=== PATIENT | female | born 1945 | race Two or more races ===

== ENCOUNTER 2019-08-20 18:51 | Inpatient (IN) | payer MEDICARE, MEDICAID ==
[~2019-08-20] VITALS: Ht 154.9 cm; Wt 76.7 kg
[2019-08-20 19:05] VITALS: BP 149/83
--- NOTE | 2019-08-20 19:05 | NUR ---
ED Nurse Note: Patient walked in to ED from home c/o flu like symptoms and SOB x3 weeks. Temp at ED is 99.4F, orally. No recent travel. Alert adn orientedx4, verbally responisve. Not in any distress. Addendum: 08/20/19 at 2018 by YANIRA ED Nurse Note: Droplet precaution observe.
--- NOTE | 2019-08-20 19:10 | NUR ---
ED Nurse Note: IV line established. Blood and urine specimen collected and sent to lab.
--- NOTE | 2019-08-20 19:15 | NUR ---
ED Nurse Note: Xray at bedside.
--- NOTE | 2019-08-20 19:23 | Emergency Room Report ---
History of Present Illness General Chief Complaint: Upper Respiratory Illness Source: Patient (Madie Guerra) Present Illness HPI 74-year-old Panamanian-speaking female brought in by paramedics due to 3 weeks of cough and shortness of breath. Patient has history of type 2 diabetes, insulin- dependent, hypertension, and asthma. Reports that inhaler has not been helping her. Patient was seen by primary doctor 3 weeks ago, chest x-ray was within normal limit, and patient was tested negative for coronavirus. Patient reports that she continues to cough and short of breath. Also started developing diarrhea and abdominal pain and nausea vomiting. Patient reports that she is extremely fatigued. Cannot even stand up and sit on the wheelchair. Oxygenation is 92%. Afebrile, vital signs otherwise within normal limits. Reports that other than albuterol inhaler has not taken medication for symptom relief. Has been staying home during this time. Denies any recent travel. Complains of chest pain. Denies any chest pain radiation. Also complains of palpitation. Denies history of tobacco smoke, alcohol intake, drug use (Madie Guerra) Allergies: Coded Allergies: No Known Allergies (Unverified , 08/20/19) COVID-19 Screening Contact w/high risk pt: No Recent Travel to affected area: No Experienced COVID-19 symptoms?: Yes COVID-19 symptoms experienced: Shortness of Breath, Flu-Like Symptoms (Madie Guerra) Patient History Past Medical History: see triage record Pertinent Family History: none Immunizations: UTD Reviewed Nursing Documentation: PMH: Agreed; PSxH: Agreed (Madie Guerra) Nursing Documentation-PMH Hx Hypertension: Yes Hx Asthma: Yes Hx Diabetes: Yes (Madie Guerra) Review of Systems All Other Systems: negative except mentioned in HPI (Madie Guerra) Physical Exam Vital Signs Date Time Temp Pulse Resp B/P (MAP) Pulse Ox O2 Delivery O2 Flow Rate FiO2 08/20/19 18:59 98.8 92 20 149/83 (105) 90 Room Air Sp02 EP Interpretation: abnormal - 92% O2 sat General Appearance: alert, mild distress Head: normocephalic, atraumatic Eyes: bilateral eye normal inspection, bilateral eye PERRL ENT: normal ENT inspection Neck: full range of motion, supple Respiratory: chest non-tender, no rhonchi, no respiratory distress, no retraction, no accessory muscle use, no wheezing, crackles Cardiovascular #1: regular rate, rhythm, no edema, no murmur Gastrointestinal: non tender, soft Rectal: deferred Genitourinary: no CVA tenderness Musculoskeletal: back normal Neurologic: alert, oriented Psychiatric: normal inspection Skin: no rash Lymphatic: no adenopathy (Madie Guerra) Procedures Critical Care Time Critical Care Time 40 minutes for multiple re-evaluations presentation concerning for covid-19, with increased concern for rapid respiratory failure requiring multiple re- evaluations not including any procedural time (Carol Pyle DO) Medical Decision Making PA Attestation All my diagnosis and treatment plans were reviewed ad discussed with my supervising physician Dr. Pyle (Madie Guerra) Diagnostic Impression: Primary Impression: URI (upper respiratory infection) Additional Impression: Pneumonia ER Course 74-year-old Panamanian-speaking female brought in by paramedics due to 3 weeks of cough and shortness of breath. Patient has history of type 2 diabetes, insulin- dependent, hypertension, and asthma. Reports that inhaler has not been helping her. Patient was seen by primary doctor 3 weeks ago, chest x-ray was within normal limit, and patient was tested negative for coronavirus. Patient reports that she continues to cough and short of breath. Also started developing diarrhea and abdominal pain and nausea vomiting. Patient reports that she is extremely fatigued. Cannot even stand up and sit on the wheelchair. Oxygenation is 92%. Afebrile, vital signs otherwise within normal limits. Reports that other than albuterol inhaler has not taken medication for symptom relief. Has been staying home during this time. Denies any recent travel. Complains of chest pain. Denies any chest pain radiation. Also complains of palpitation. Denies history of tobacco smoke, alcohol intake, drug use Ddx considered but are not limited to: Coronavirus, pneumonia, bronchitis, ARDS , [place], Angina, COPD, GERD, Vital signs: are WNL, pt. is afebrile H&PE are most consistent with URI suspicious for coronavirus ORDERS: EKG, Chest XR, cardiac labs(troponin, CBC, CMP, BNP), lactic acid, blood culture, influenza swab ED INTERVENTIONS: NS bolus, as patient reports she is dehydrated I signed out the patient to Dr. Pyle at 8pm Patient was admitted with diagnosis of URI suspicious for coronavirus to under supervision of : Edenilson pt stable at time of admission (Madie Guerra) ER Course Please refer to the initial note for the history exam and presentation I do agree with the initial note Patient was initially also found to be hypoxic has had Reported outpatient attempt however presents back with continued shortness of breath and complaints of cough Blood work is initiated Patient does meet risk factors with concerning clinical findings for covid-19 Patient is hospitalized with oxygenation requiring further testing Labs Test 08/20/19 19:33 08/20/19 20:00 White Blood Count 9.1 K/UL (4.8-10.8) Red Blood Count 4.27 M/UL (4.20-5.40) Hemoglobin 11.8 G/DL (12.0-16.0) Hematocrit 36.9 % (37.0-47.0) Mean Corpuscular Volume 86 FL (80-99) Mean Corpuscular Hemoglobin 27.6 PG (27.0-31.0) Mean Corpuscular Hemoglobin Concent 31.9 G/DL (32.0-36.0) Red Cell Distribution Width 13.3 % (11.6-14.8) Platelet Count 384 K/UL (150-450) Mean Platelet Volume 7.9 FL (6.5-10.1) Neutrophils (%) (Auto) 75.6 % (45.0-75.0) Lymphocytes (%) (Auto) 15.1 % (20.0-45.0) Monocytes (%) (Auto) 8.0 % (1.0-10.0) Eosinophils (%) (Auto) 0.6 % (0.0-3.0) Basophils (%) (Auto) 0.7 % (0.0-2.0) Sodium Level 135 MMOL/L (136-145) Potassium Level 4.9 MMOL/L (3.5-5.1) Chloride Level 94 MMOL/L (98-107) Carbon Dioxide Level 31 MMOL/L (21-32) Anion Gap 10 mmol/L (5-15) Blood Urea Nitrogen 19 mg/dL (7-18) Creatinine 1.2 MG/DL (0.55-1.30) Estimat Glomerular Filtration Rate 44.0 mL/min (>60) Glucose Level 377 MG/DL (74-106) Calcium Level 9.7 MG/DL (8.5-10.1) Total Bilirubin 0.2 MG/DL (0.2-1.0) Aspartate Amino Transf (AST/SGOT) 36 U/L (15-37) Alanine Aminotransferase (ALT/SGPT) 57 U/L (12-78) Alkaline Phosphatase 69 U/L (46-116) Total Protein 8.2 G/DL (6.4-8.2) Albumin 3.1 G/DL (3.4-5.0) Globulin 5.1 g/dL Albumin/Globulin Ratio 0.6 (1.0-2.7) (Carol Pyle DO) EKG Diagnostic Results Rate: normal Rhythm: NSR ST Segments: no acute changes Other Impression No acute ST changes (Madie Guerra) Rhythm Strip Diag. Results EP Interpretation: yes Rate: 88 Rhythm: NSR, no PVC's, no ectopy (Carol Pyle DO) Chest X-Ray Diagnostic Results Chest X-Ray Diagnostic Results : Chest X-Ray Ordered: Yes # of Views/Limited/Complete: 1 View Indication: Shortness of Breath EP Interpretation: Yes PA Xray: Interpretation reviewed, by supervising MD, and agrees with findings. Interpretation: no effusion, no pneumothorax, other - Consolidation noted perihilar Impression: Other - Consolidation noted perihilar Electronically Signed by: Madie Olson PA-C (Madie Guerra) Chest X-Ray Diagnostic Results : Chest X-Ray Ordered: Yes # of Views/Limited/Complete: 1 View Indication: Shortness of Breath EP Interpretation: Yes Interpretation: no consolidation, no effusion, no pneumothorax, other - Question some increased markings left lower lobe Impression: Other - Question haziness left lower lobe possible infiltrate versus other Electronically Signed by: Carol Pyle DO (Carol Pyle DO) Last Vital Signs Date Time Temp Pulse Resp B/P (MAP) Pulse Ox O2 Delivery O2 Flow Rate FiO2 08/20/19 18:59 98.8 92 20 149/83 (105) 90 Room Air (Madie Guerra) Status: improved (Carol Pyle DO) Disposition: ADMITTED INPATIENT Condition: Serious Madie Guerra Aug 20, 2019 19:23 Carol Pyle DO Aug 20, 2019 20:28
[2019-08-20 19:56] LABS: BASOPHILS % (AUTO) 0.7 % (0.0-2.0); EOSINOPHILS % (AUTO) 0.6 % (0.0-3.0); HEMATOCRIT 36.9 % (37.0-47.0); HEMOGLOBIN 11.8 G/DL (12.0-16.0); LYMPHOCYTES % (AUTO) 15.1 % (20.0-45.0); MEAN CORPUSCULAR VOLUME 86 FL (80-99); NEUTROPHILS % (AUTO) 75.6 % (45.0-75.0); PLATELET COUNT 384 K/UL (150-450); RED BLOOD COUNT 4.27 M/UL (4.20-5.40); RED CELL DISTRIBUTION WIDTH 13.3 % (11.6-14.8); WHITE BLOOD COUNT 9.1 K/UL (4.8-10.8)
[2019-08-20 20:20] LABS: INR 0.9 (0.9-1.1)
[2019-08-20 20:21] LABS: ANION GAP 10 mmol/L (5-15); BLOOD UREA NITROGEN 19 mg/dL (7-18); CALCIUM 9.7 MG/DL (8.5-10.1); CARBON DIOXIDE 31 MMOL/L (21-32); CHLORIDE 94 MMOL/L (98-107); CREATININE 1.2 MG/DL (0.55-1.30); POTASSIUM 4.9 MMOL/L (3.5-5.1); SODIUM 135 MMOL/L (136-145)
[2019-08-20 20:26] LABS: ALANINE AMINOTRANSFERASE 57 U/L (12-78); ALBUMIN 3.1 G/DL (3.4-5.0); ALBUMIN/GLOBULIN RATIO 0.6 (1.0-2.7); ALKALINE PHOSPHATASE 69 U/L (46-116); ASPARTATE AMINO TRANSFERASE 36 U/L (15-37); BILIRUBIN,TOTAL 0.2 MG/DL (0.2-1.0)
[2019-08-20 20:35] LABS: CKMB 1.5 NG/ML (0.0-3.6)
[2019-08-20 20:43] LABS: APPEARANCE,URINE CLEAR; BILIRUBIN, URINE NEGATIVE (NEGATIVE); GLUCOSE, URINE (UA) 3+ (NEGATIVE); KETONES,URINE 1+ (NEGATIVE); LEUKOCYTE ESTERASE ,URINE 1+ (NEGATIVE); NITRITE,URINE NEGATIVE (NEGATIVE); PH,URINE 6 (4.5-8.0); PROTEIN,URINE 2+ (NEGATIVE); UROBILINOGEN,URINE 1 MG/DL (0.0-1.0)
[2019-08-20 20:44] LABS: COLOR,URINE YELLOW
[2019-08-20 21:32] VITALS: BP 156/82
[2019-08-20] MEDS ORDERED: MECLIZINE HCL25 MG ORAL (21:48)
[2019-08-20 23:00] VITALS: BP 145/79
--- NOTE | 2019-08-20 23:00 | NUR ---
ED Nurse Note: Pt seen sleeping in bed. Not in any distress. Safety and comfort provided. Will cont to monitor.
[2019-08-21] VITALS (7 sets, daily range): BP systolic 129–144; BP diastolic 62–81
--- NOTE | 2019-08-21 01:15 | NUR ---
ED Nurse Note: Pt moved to a [place] [facility] bed.
--- NOTE | 2019-08-21 07:02 | NUR ---
HAND-OFF: Report given to Dion LIRA. Endorsed plan of care.
--- NOTE | 2019-08-21 07:15 | NUR ---
ED Nurse Note: Patient resting in bed comfortably. Patient on the ekg monitor. No s/s of acute distress.
--- NOTE | 2019-08-21 09:50 | Diagnostic Imaging Report ---
Indication: Cough Technique: One view of the chest Comparison: none Findings: The heart is borderline enlarged. The aorta is tortuous and calcified. There is some right suprahilar scarring and bronchial wall thickening. No definite acute infiltrates or effusions. There are degenerative changes of both acromioclavicular joints. Impression: No definite acute process. Findings as noted
--- NOTE | 2019-08-21 10:23 | NUR ---
ED Nurse Note: Called and left voicemail for Dr. Arriaga asking to call back for admission orders for patient.
--- NOTE | 2019-08-21 11:15 | NUR ---
ED Nurse Note: Received pt, Admission orders given by Dr Arriaga and received by Dion LIRA.
--- NOTE | 2019-08-21 11:30 | NUR ---
ED Nurse Note: Dr Arriaga at the bed side.
--- NOTE | 2019-08-21 12:10 | NUR ---
ED Nurse Note: Lunch provided to pt. 30 % consumed.
--- NOTE | 2019-08-21 14:39 | NUR ---
ED Nurse Note: Report given to Cailtyn LIRA of SDU.
--- NOTE | 2019-08-21 16:00 | History and Physical Report ---
DATE OF ADMISSION: 08/20/2019 HISTORY OF PRESENT ILLNESS: This is a 74-year-old female with a history of cough and shortness of breath. She came to the hospital with increasing shortness of breath. The patient is a known diabetic and has asthma and hypertension. Apparently, the patient has been tested in the past for COVID-19 and has been negative. She also had diarrhea, abdominal pain and vomiting, and she also reports fatigue. She was found to be normoxemic, but low saturation of 92% on room air. The patient has been taking albuterol at home. She is admitted to the hospital for subsequent management and care and repeat COVID-19 test. PAST MEDICAL HISTORY: Hypertension, diabetes mellitus, asthma. ALLERGIES: None reported. HOME MEDICATIONS: None reported except inhalers, although I note she is a known diabetic and hypertensive. REVIEW OF SYSTEMS: Denies any headaches, hematemesis, melena, or hematochezia. PHYSICAL EXAMINATION: GENERAL: Reveals a 74-year-old female. HEENT: Unremarkable. LUNGS: Clear breath sounds bilaterally. HEART: Normal heart sounds. ABDOMEN: Soft. EXTREMITIES: There is no edema. IMAGING: X-ray chest with some right perihilar scarring, but no definite pathology noted. LABORATORY DATA: Lab testing showed otherwise negative urinalysis, normal chemistries with lactic acid 2.4, now down to 1.5, glucose 377. White count is normal, hemoglobin 11. IMPRESSION: 1. Diabetes mellitus with hyperglycemia. 2. Suspect exacerbation of asthma. 3. Rule out COVID-19. 4. Hypertension. DISCUSSION: Admit to the hospital. We will start insulin sliding scale, steroids, empiric antibiotics, and IV fluids. We will follow carefully. Jacoby Arriaga M.D. DR: ARNULFO JOB#: [id number] CC:
--- NOTE | 2019-08-21 16:00 | NUR ---
NURSE NOTES: Received telephone report at 1443 from Martine LIRA. Pt. at floor now. Pt. awake, a/o x 4. On O2 at 2LPM via NC. O2 sat at 97%. Noted pt. dry, non-productive cough. Denies pain at present. Discomfort when coughing per pt. IV at left FA #22g. in placed patent/intact running NS at 75cc/hr. Purewick in placed. Bed in low position. Call light within reach. Will cont. to monitor.
--- NOTE | 2019-08-21 16:30 | NUR ---
NURSE NOTES: Called Dr. Arriaga regarding admission orders. Awaiting for response.
--- NOTE | 2019-08-21 18:27 | NUR ---
NURSE NOTES: Called back Dr. Arriaga regarding medications order. Noted and carried out.
--- NOTE | 2019-08-21 19:42 | NUR ---
HAND-OFF: Report given to Nasim Her RN. Pt. remain stable.
[2019-08-21] MEDS: Levemir Flexpen SUBQ SCH (21:00)
[2019-08-21] MEDS: NovoLOG Insulin Flexpen SUBQ SCH (21:00)
[2019-08-22] VITALS: BP 138/75
[2019-08-22 04:00] VITALS: BP 145/73
[2019-08-22] MEDS: NovoLOG Insulin Flexpen SUBQ SCH ×4 (06:30→20:57)
--- NOTE | 2019-08-22 07:10 | NUR ---
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 RECEIVED PT ON ISOLATION ROOM R/O COVID-19. PT AWAKE AND ALERT MALTESE SPEAKING ONLY DENIES CP OR SOB AT THIS TIME,DRY COUGH NOTED. FULL BODY ASSESSMENT DONE. NO ACUTE DISTRESS NOTED AT THIS TIME. WILL CONT TO MONITOR.
--- NOTE | 2019-08-22 07:20 | NUR ---
HAND-OFF: Report given to Amadeo LIRA.
[2019-08-22 08:00] VITALS: BP 136/75
--- NOTE | 2019-08-22 08:42 | Pulmonology Progress Note ---
Assessment/Plan Assessment/Plan IMPRESSION: 1. Diabetes mellitus with hyperglycemia. 2. Exacerbation of asthma. 3. Rule out COVID-19. 4. Hypertension. DISCUSSION: Continue insulin sliding scale, added steroids, empiric antibiotics, and IV fluids. I will follow carefully. Resume home medications and Lantus Jacoby Arriaga M.D. Subjective Interval Events: None new Constitutional: Reports: no symptoms HEENT: Repors: no symptoms Respiratory: Reports: no symptoms Cardiovascular: Reports: no symptoms Gastrointestinal/Abdominal: Reports: no symptoms Allergies: Coded Allergies: No Known Allergies (Unverified , 08/20/19) Objective Last 24 Hour Vital Signs Date Time Temp Pulse Resp B/P (MAP) Pulse Ox O2 Delivery O2 Flow Rate FiO2 08/22/19 04:14 2.0 08/22/19 04:14 Nasal Cannula 2.0 08/22/19 04:00 92 08/22/19 04:00 98.0 90 18 145/73 (97) 95 08/22/19 00:03 2.0 08/22/19 00:00 88 08/22/19 00:00 97.9 88 18 138/75 (96) 96 08/21/19 23:27 Nasal Cannula 2.0 08/21/19 21:00 2.0 08/21/19 20:00 97.0 84 18 144/76 (98) 95 08/21/19 20:00 86 08/21/19 17:57 90 08/21/19 16:33 Nasal Cannula 2.0 08/21/19 15:32 99.0 80 18 144/85 95 Nasal Cannula 2.0 08/21/19 13:44 99.0 76 16 141/80 99 Nasal Cannula 2.0 08/21/19 10:51 99.3 93 17 134/79 93 Room Air 08/21/19 08:50 99.2 96 18 137/81 97 Room Air Intake and Output 08/21/19 08/22/19 19:00 07:00 Intake Total 315 ml Output Total 1500 ml Balance 315 ml -1500 ml Intake Oral 240 ml IV Total 75 ml Output Urine Total 1500 ml General Appearance: no acute distress HEENT: normocephalic Respiratory/Chest: chest wall non-tender Cardiovascular: normal peripheral pulses Abdomen: normal bowel sounds Microbiology Date/Time Source Procedure Growth Status 08/20/19 19:33 Blood Blood Culture - Preliminary NO GROWTH AFTER 24 HOURS Resulted 08/20/19 19:15 Blood Blood Culture - Preliminary NO GROWTH AFTER 24 HOURS Resulted 08/20/19 20:29 Nasal Nares - Final Complete 08/20/19 20:29 Nasal Nares - Final Complete Current Medications Medications (Trade) Dose Ordered Sig/Estelle Route PRN Reason Start Time Stop Time Status Last Admin Dose Admin Dextrose (Dextrose 50%) 25 ml Q30M PRN IV Hypoglycemia 08/21/19 16:45 11/19/19 16:44 Dextrose (Dextrose 50%) 50 ml Q30M PRN IV Hypoglycemia 08/21/19 16:45 11/19/19 16:44 Hydroxychloroquine Sulfate (Plaquenil) 200 mg BID ORAL 08/22/19 18:00 08/26/19 09:01 Hydroxychloroquine Sulfate (Plaquenil) 400 mg BID ORAL 08/21/19 20:00 08/22/19 09:01 08/21/19 21:45 Insulin Aspart (NovoLOG) BEFORE MEALS AND HS SUBQ 08/21/19 21:00 11/19/19 20:59 Insulin Detemir (Levemir) 20 units BEDTIME SUBQ 08/21/19 21:00 11/19/19 20:59 Levofloxacin 150 ml @ 100 mls/hr DAILY IVPB 08/22/19 09:00 08/29/19 08:59 Metformin HCl (Glucophage) 1,000 mg BID ORAL 08/22/19 09:00 09/21/19 08:59 Pantoprazole (Protonix) 40 mg DAILY ORAL 08/22/19 09:00 09/21/19 08:59 Sodium Chloride 1,000 ml @ 75 mls/hr [id number] IV 08/21/19 12:45 09/20/19 12:44 08/22/19 01:53 Jacoby Arriaga MD Aug 22, 2019 08:42
--- NOTE | 2019-08-22 09:17 | NUR ---
*-* INSURANCE *-* ALL AVAILABLE CLINICALS HAVE BEEN FAXED TO: [facility] OPAL: ADRIAN REF# [id number] P [phone] OPT. 01 F: [phone]
--- NOTE | 2019-08-22 09:36 | NUR ---
CASE MANAGEMENT:REVIEW 08/20/19 @ 1851 74 YR OLD MALE BIBA FROM HOME TO ER CC: SOB. FLU LIKE SYMPTOMS SI: URI. PNEUMONIA 99.4 92 20 149/83 90% ON RA BUN+19 GLUCOSE+377 IS: PLACED ON 2L/NC 1L NS BOLUS X1 IV LEVAQUIN X1 COVID-19 UPPER SOURCE : ADMITTED TO STEP DOWN UNIT ON 08/21/19 @ 1530 08/22/19 SI: DM W/HYPERGLYCEMIA ASTHMA EXACERBATION. R/O COVID-19 98.0 90 18 145/73 95% ON 2L/NC IS: IV LEVAQUIN Q24 IVF@75/HR PLAQUENIL PO BID METFORMIN PO BID PROTONIX PO QD SS INSULIN AC+HS LEVEMIR SQ QHS : STEP DOWN UNIT DCP: PATIENT IS FROM HOME
[2019-08-22] MEDS: metFORMIN 500mg tab ORAL SCH ×2 (10:03→17:34)
[2019-08-22 12:00] VITALS: BP 136/76
--- NOTE | 2019-08-22 14:06 | Infectious Diseases Prog Note ---
Assessment/Plan Assessment/Plan Full consult dictation to follow: cough, sob, no fevers rule out covid-19 virus infection chest x-ray - negative hydroxychloroquine plus azithromycin await covid-19 pcr testing thank you Subjective Allergies: Coded Allergies: No Known Allergies (Unverified , 08/20/19) Objective Vital Signs Last 24 Hour Vital Signs Date Time Temp Pulse Resp B/P (MAP) Pulse Ox O2 Delivery O2 Flow Rate FiO2 08/22/19 12:00 97.4 95 20 136/76 (96) 93 08/22/19 12:00 2.0 08/22/19 12:00 Nasal Cannula 2.0 08/22/19 12:00 91 08/22/19 08:00 97.8 92 20 136/75 (95) 94 08/22/19 08:00 Nasal Cannula 2.0 08/22/19 08:00 2.0 08/22/19 08:00 96 08/22/19 04:14 2.0 08/22/19 04:14 Nasal Cannula 2.0 08/22/19 04:00 92 08/22/19 04:00 98.0 90 18 145/73 (97) 95 08/22/19 00:03 2.0 08/22/19 00:00 88 08/22/19 00:00 97.9 88 18 138/75 (96) 96 08/21/19 23:27 Nasal Cannula 2.0 08/21/19 21:00 2.0 08/21/19 20:00 97.0 84 18 144/76 (98) 95 08/21/19 20:00 86 08/21/19 17:57 90 08/21/19 16:33 Nasal Cannula 2.0 08/21/19 15:32 99.0 80 18 144/85 95 Nasal Cannula 2.0 Height (Feet): 5 Height (Inches): 1.00 Weight (Pounds): 170 Microbiology Date/Time Source Procedure Growth Status 08/20/19 19:33 Blood Blood Culture - Preliminary NO GROWTH AFTER 24 HOURS Resulted 08/20/19 19:15 Blood Blood Culture - Preliminary NO GROWTH AFTER 24 HOURS Resulted 08/20/19 20:29 Nasal Nares - Final Complete 08/20/19 20:29 Nasal Nares - Final Complete Current Medications Medications (Trade) Dose Ordered Sig/Estelle Route PRN Reason Start Time Stop Time Status Last Admin Dose Admin Dextrose (Dextrose 50%) 25 ml Q30M PRN IV Hypoglycemia 08/21/19 16:45 11/19/19 16:44 Dextrose (Dextrose 50%) 50 ml Q30M PRN IV Hypoglycemia 08/21/19 16:45 11/19/19 16:44 Hydroxychloroquine Sulfate (Plaquenil) 200 mg BID ORAL 08/22/19 18:00 08/26/19 09:01 Insulin Aspart (NovoLOG) BEFORE MEALS AND HS SUBQ 08/21/19 21:00 11/19/19 20:59 08/22/19 12:48 Insulin Detemir (Levemir) 20 units BEDTIME SUBQ 08/21/19 21:00 11/19/19 20:59 Metformin HCl (Glucophage) 1,000 mg BID ORAL 08/22/19 09:00 09/21/19 08:59 08/22/19 10:03 Pantoprazole (Protonix) 40 mg DAILY ORAL 08/22/19 09:00 09/21/19 08:59 08/22/19 10:03 Sodium Chloride 1,000 ml @ 75 mls/hr [id number] IV 08/21/19 12:45 09/20/19 12:44 08/22/19 12:58 Trevor Rogers MD Aug 22, 2019 14:06
[2019-08-22] MEDS ORDERED: Azithromycin 250mg tab ORAL SCH (14:10)
[2019-08-22 16:00] VITALS: BP 137/78
--- NOTE | 2019-08-22 19:10 | NUR ---
HAND-OFF: Report given to .SUSY LIRA
--- NOTE | 2019-08-22 19:20 | NUR ---
NURSE NOTES: Report received from PANKAJ Childs. Observed pt lying in the bed. Noted pt c/o pain at iv site, infiltrates noted and taken out, will put new one. A/O x4. Denies any other pain. SR on security monitor. On room air with no sob. Abd soft and non-tender. 1 BM noted Bed bath given. Purewick in placed. Bed in the lowest position. Side rails up x3. Will continue to monitor.
[2019-08-22 20:00] VITALS: BP 140/82
[2019-08-22] MEDS: Levemir Flexpen SUBQ SCH (20:56)
[2019-08-23] VITALS: BP 144/70
--- NOTE | 2019-08-23 | NUR ---
NURSE NOTES: pt sleeping in the bed, calm. No acute distress noted at this time. Will continue to monitor.
[2019-08-23 04:00] VITALS: BP 133/64
[2019-08-23 05:47] LABS: BASOPHILS % (AUTO) 0.4 % (0.0-2.0); EOSINOPHILS % (AUTO) 1.2 % (0.0-3.0); HEMATOCRIT 32.3 % (37.0-47.0); HEMOGLOBIN 10.7 G/DL (12.0-16.0); MEAN CORPUSCULAR VOLUME 84 FL (80-99); MONOCYTES % (AUTO) 8.5 % (1.0-10.0); PLATELET COUNT 464 K/UL (150-450); RED BLOOD COUNT 3.85 M/UL (4.20-5.40); RED CELL DISTRIBUTION WIDTH 12.2 % (11.6-14.8); WHITE BLOOD COUNT 8.6 K/UL (4.8-10.8)
[2019-08-23 06:02] LABS: ANION GAP 11 mmol/L (5-15); BLOOD UREA NITROGEN 7 mg/dL (7-18); CALCIUM 9.1 MG/DL (8.5-10.1); CARBON DIOXIDE 27 MMOL/L (21-32); CHLORIDE 104 MMOL/L (98-107); CREATININE 0.8 MG/DL (0.55-1.30); POTASSIUM 3.9 MMOL/L (3.5-5.1); SODIUM 142 MMOL/L (136-145)
[2019-08-23] MEDS: NovoLOG Insulin Flexpen SUBQ SCH ×4 (06:27→20:37)
--- NOTE | 2019-08-23 06:30 | NUR ---
NURSE NOTES: Left message regarding COVID 19 to . Pt stable. On 2L, sat at 98%. No other distress noted at this time.
--- NOTE | 2019-08-23 07:10 | NUR ---
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 RECEIVED PT ON DROPLET ISOLATION COVID-19 CONFIRMED LAST NIGHT AT 2100 PM. PT AWAKE AND ALERT ORIENTED X4 DANISH SPEAKING ,ABLE TO FALLOWS SIMPLE COMMANDS IN [place] .PT WITH H.L G# 22 ON RT HAND CONNECTED TO IVF,S NS @75CC/HRS INFUSING WELL AT THIS TIME.PT USING O2 @ 2L/MINTS VIA N/C ,O2 SAT 95%.PT C/O,S OF DRY COUGH. PLACED A TELEPHONE CALL TO DR DOSS AND LEFT A MESSAGE ON EMERGENCY VOICE MAIL REGARDING PT IS POSITIVE COVID-19 AND PT C/O,S OF DRY COUGH. A WAITING FOR M.D TO CALL ME BACK.WILL CONT TO MONITOR.
--- NOTE | 2019-08-23 07:14 | NUR ---
HAND-OFF: Report given to PANKAJ Childs.
[2019-08-23 08:00] VITALS: BP 149/83
[2019-08-23] MEDS ORDERED: Azithromycin 250mg tab ORAL SCH (09:00)
[2019-08-23] MEDS: metFORMIN 500mg tab ORAL SCH ×2 (09:18→17:47)
--- NOTE | 2019-08-23 10:30 | NUR ---
NURSE NOTES: DR DOSS CAME TO SEE THE PT AND MADE HIM AWARE AND NOTIFIED REGARDING PT IS REQUESTING FOR COUGH MEDICATION, MRia STATED " I WILL ORDER MEDICATION FOR COUGH". WILL CONT TO MONITOR.
--- NOTE | 2019-08-23 11:50 | Pulmonology Progress Note ---
Assessment/Plan Assessment/Plan IMPRESSION: 1. Diabetes mellitus with hyperglycemia. 2. Exacerbation of asthma. 3. Positive COVID-19 pneumonia 4. Hypertension. DISCUSSION: Continue insulin sliding scale, steroids, empiric antibiotics, and IV fluids. I will follow carefully. Resume home medications and Lantus Seen by ID re + COVID 19 Jacoby Arriaga M.D. Subjective Interval Events: Has moist cough; saturating well on nasal O2 Constitutional: Reports: no symptoms HEENT: Repors: no symptoms Respiratory: Reports: no symptoms Cardiovascular: Reports: no symptoms Allergies: Coded Allergies: No Known Allergies (Unverified , 08/20/19) Objective Last 24 Hour Vital Signs Date Time Temp Pulse Resp B/P (MAP) Pulse Ox O2 Delivery O2 Flow Rate FiO2 08/23/19 08:00 97.9 92 20 149/83 (105) 95 08/23/19 08:00 Nasal Cannula 2.0 08/23/19 08:00 2.0 08/23/19 08:00 85 08/23/19 04:00 Nasal Cannula 2.0 08/23/19 04:00 98.8 100 20 133/64 (87) 95 08/23/19 04:00 2.0 08/23/19 03:34 100 08/23/19 00:00 Nasal Cannula 2.0 08/23/19 00:00 98.8 86 20 144/70 (94) 95 08/23/19 00:00 86 08/23/19 00:00 2.0 08/22/19 20:00 Nasal Cannula 2.0 08/22/19 20:00 2.0 08/22/19 20:00 97.8 83 20 140/82 (101) 95 08/22/19 20:00 95 08/22/19 16:00 97.7 92 19 137/78 (97) 94 08/22/19 16:00 2.0 08/22/19 16:00 Nasal Cannula 2.0 08/22/19 16:00 96 08/22/19 12:00 97.4 95 20 136/76 (96) 93 08/22/19 12:00 2.0 08/22/19 12:00 Nasal Cannula 2.0 08/22/19 12:00 91 Intake and Output 08/22/19 08/23/19 19:00 07:00 Intake Total 1570 ml 795 ml Output Total 550 ml 400 ml Balance 1020 ml 395 ml Intake Oral 820 ml 120 ml IV Total 750 ml 675 ml Output Urine Total 550 ml 400 ml # Bowel Movements 1 1 General Appearance: no acute distress HEENT: normocephalic Respiratory/Chest: chest wall non-tender Cardiovascular: normal peripheral pulses Abdomen: normal bowel sounds Microbiology Date/Time Source Procedure Growth Status 08/20/19 19:33 Blood Blood Culture - Preliminary NO GROWTH AFTER 48 HOURS Resulted 08/20/19 19:15 Blood Blood Culture - Preliminary NO GROWTH AFTER 48 HOURS Resulted 08/20/19 20:29 Nasopharynx Coronavirus COVID-19 PCR ([facility]) - Final Complete 08/20/19 20:29 Nasal Nares - Final Complete 08/20/19 20:29 Nasal Nares - Final Complete Laboratory Tests 08/23/19 05:00: White Blood Count 8.6, Red Blood Count 3.85L, Hemoglobin 10.7L, Hematocrit 32.3L , Mean Corpuscular Volume 84, Mean Corpuscular Hemoglobin 27.8, Mean Corpuscular Hemoglobin Concent 33.2, Red Cell Distribution Width 12.2, Platelet Count 464H, Mean Platelet Volume 6.3L, Neutrophils (%) (Auto) 72.0, Lymphocytes (%) (Auto) 18.0L, Monocytes (%) (Auto) 8.5, Eosinophils (%) (Auto) 1.2, Basophils (%) (Auto) 0.4, Sodium Level 142, Potassium Level 3.9, Chloride Level 104, Carbon Dioxide Level 27, Anion Gap 11, Blood Urea Nitrogen 7, Creatinine 0.8, Estimat Glomerular Filtration Rate > 60, Glucose Level 104, Calcium Level 9.1 Current Medications Medications (Trade) Dose Ordered Sig/Estelle Route PRN Reason Start Time Stop Time Status Last Admin Dose Admin Azithromycin (Zithromax) 250 mg DAILY ORAL 08/23/19 09:00 08/30/19 08:59 08/23/19 09:19 Dextrose (Dextrose 50%) 25 ml Q30M PRN IV Hypoglycemia 08/21/19 16:45 11/19/19 16:44 Dextrose (Dextrose 50%) 50 ml Q30M PRN IV Hypoglycemia 08/21/19 16:45 11/19/19 16:44 Hydroxychloroquine Sulfate (Plaquenil) 200 mg BID ORAL 08/22/19 18:00 08/26/19 09:01 08/23/19 09:18 Insulin Aspart (NovoLOG) BEFORE MEALS AND HS SUBQ 08/21/19 21:00 11/19/19 20:59 08/22/19 20:57 Insulin Detemir (Levemir) 20 units BEDTIME SUBQ 08/21/19 21:00 11/19/19 20:59 08/22/19 20:56 Metformin HCl (Glucophage) 1,000 mg BID ORAL 08/22/19 09:00 09/21/19 08:59 08/23/19 09:18 Pantoprazole (Protonix) 40 mg DAILY ORAL 08/22/19 09:00 09/21/19 08:59 08/23/19 09:18 Sodium Chloride 1,000 ml @ 75 mls/hr [id number] IV 08/21/19 12:45 09/20/19 12:44 08/23/19 05:14 Jacoby Arriaga MD Aug 23, 2019 11:50
[2019-08-23 12:00] VITALS: BP 142/76
[2019-08-23] MEDS: guaiFENesin w/Codeine 5ml Liq ud ORAL PRN ×2 (13:12→20:37)
--- NOTE | 2019-08-23 13:29 | NUR ---
*-* INSURANCE *-* ALL AVAILABLE CLINICALS HAVE BEEN FAXED TO: [facility] OPAL: ADRIAN REF# [id number] P [phone] OPT. 01 F: [phone]
--- NOTE | 2019-08-23 13:30 | NUR ---
CASE MANAGEMENT: REVIEW 08/23/2019 SI:ASTHMA EXACERBATION. Positive COVID-19 pneumonia. T 98.4 HR 79 RR 20 B/P 142/76 SATS 96% ON 2L/NC LABS: WNL IS:NS @ 75 ML/HR LEVEMIR SUBQ QHS METFORMIN PO BID PLAQUENIL PO BID PROTONIX PO QD INSULIN ASPART SUB AC/HS SDU
[2019-08-23 16:30] VITALS: BP 146/81
--- NOTE | 2019-08-23 19:00 | NUR ---
HAND-OFF: Report given to .CHAPIN LIRA.
--- NOTE | 2019-08-23 19:01 | NUR ---
NURSE NOTES: received pt from Amadeo LIRA., pt is awake and AOx4 at this moment Greek speaker. pt is on 2L of NC O2sat is at 96%. no SOB noted at this moment. pt states no pain right now. Right Hand 24G intact, clean and patent. purewick is on. pt is on lowest position, alarmed, and locked. will continue to monitor pt with plan of care. call light within reach.
[2019-08-23 20:00] VITALS: BP 145/77
[2019-08-23] MEDS: Levemir Flexpen SUBQ SCH (20:38)
--- NOTE | 2019-08-23 20:58 | Infectious Diseases Prog Note ---
Assessment/Plan Assessment/Plan Full consult dictated: A) 1) covid-19 infection 2) cough 3) pmh noted 4) allergies - nkda P) 1) hydroxychloroquine - day # 07/25 2) azithromycin - day # 06/27 3) telemetry 4) thank you Subjective Constitutional: Denies: fever HEENT: Denies: congestion Respiratory: Denies: shortness of breath Cardiovascular: Denies: chest pain Allergies: Coded Allergies: No Known Allergies (Unverified , 08/20/19) Objective Vital Signs Last 24 Hour Vital Signs Date Time Temp Pulse Resp B/P (MAP) Pulse Ox O2 Delivery O2 Flow Rate FiO2 08/23/19 16:30 98.1 19 146/81 (102) 95 08/23/19 16:00 2.0 08/23/19 16:00 85 08/23/19 16:00 Nasal Cannula 2.0 08/23/19 12:00 86 08/23/19 12:00 2.0 08/23/19 12:00 Nasal Cannula 2.0 08/23/19 12:00 98.4 79 20 142/76 (98) 96 08/23/19 08:00 Nasal Cannula 2.0 08/23/19 08:00 2.0 08/23/19 08:00 85 08/23/19 04:00 Nasal Cannula 2.0 08/23/19 04:00 98.8 100 20 133/64 (87) 95 08/23/19 04:00 2.0 08/23/19 03:34 100 08/23/19 00:00 Nasal Cannula 2.0 08/23/19 00:00 98.8 86 20 144/70 (94) 95 08/23/19 00:00 86 08/23/19 00:00 2.0 Height (Feet): 5 Height (Inches): 1.00 Weight (Pounds): 170 General Appearance: WD/WN HEENT: normocephalic, atraumatic, anicteric Respiratory/Chest: lungs clear, normal breath sounds, no accessory muscle use Cardiovascular: normal rate, regular rhythm, no gallop/murmur Abdomen: normal bowel sounds, soft, non tender, no organomegaly Laboratory Tests Test 08/23/19 05:00 White Blood Count 8.6 K/UL (4.8-10.8) Red Blood Count 3.85 M/UL (4.20-5.40) L Hemoglobin 10.7 G/DL (12.0-16.0) L Hematocrit 32.3 % (37.0-47.0) L Mean Corpuscular Volume 84 FL (80-99) Mean Corpuscular Hemoglobin 27.8 PG (27.0-31.0) Mean Corpuscular Hemoglobin Concent 33.2 G/DL (32.0-36.0) Red Cell Distribution Width 12.2 % (11.6-14.8) Platelet Count 464 K/UL (150-450) H Mean Platelet Volume 6.3 FL (6.5-10.1) L Neutrophils (%) (Auto) 72.0 % (45.0-75.0) Lymphocytes (%) (Auto) 18.0 % (20.0-45.0) L Monocytes (%) (Auto) 8.5 % (1.0-10.0) Eosinophils (%) (Auto) 1.2 % (0.0-3.0) Basophils (%) (Auto) 0.4 % (0.0-2.0) Sodium Level 142 MMOL/L (136-145) Potassium Level 3.9 MMOL/L (3.5-5.1) Chloride Level 104 MMOL/L (98-107) Carbon Dioxide Level 27 MMOL/L (21-32) Anion Gap 11 mmol/L (5-15) Blood Urea Nitrogen 7 mg/dL (7-18) Creatinine 0.8 MG/DL (0.55-1.30) Estimat Glomerular Filtration Rate > 60 mL/min (>60) Glucose Level 104 MG/DL (74-106) Calcium Level 9.1 MG/DL (8.5-10.1) Current Medications Medications (Trade) Dose Ordered Sig/Estelle Route PRN Reason Start Time Stop Time Status Last Admin Dose Admin Azithromycin (Zithromax) 250 mg DAILY ORAL 08/23/19 09:00 08/30/19 08:59 08/23/19 09:19 Dextrose (Dextrose 50%) 25 ml Q30M PRN IV Hypoglycemia 08/21/19 16:45 11/19/19 16:44 Dextrose (Dextrose 50%) 50 ml Q30M PRN IV Hypoglycemia 08/21/19 16:45 11/19/19 16:44 Guaifenesin/ Codeine Phosphate (Robitussin with codeine) 5 ml Q6H PRN ORAL For Cough 08/23/19 12:00 09/22/19 11:59 08/23/19 20:37 Hydroxychloroquine Sulfate (Plaquenil) 200 mg BID ORAL 08/22/19 18:00 08/26/19 09:01 08/23/19 17:47 Insulin Aspart (NovoLOG) BEFORE MEALS AND HS SUBQ 08/21/19 21:00 11/19/19 20:59 08/22/19 20:57 Insulin Detemir (Levemir) 20 units BEDTIME SUBQ 08/21/19 21:00 11/19/19 20:59 08/23/19 20:38 Metformin HCl (Glucophage) 1,000 mg BID ORAL 08/22/19 09:00 09/21/19 08:59 08/23/19 17:47 Pantoprazole (Protonix) 40 mg DAILY ORAL 08/22/19 09:00 09/21/19 08:59 08/23/19 09:18 Sodium Chloride 1,000 ml @ 75 mls/hr [id number] IV 08/21/19 12:45 09/20/19 12:44 08/23/19 15:00 Trevor Rogers MD Aug 23, 2019 20:58
--- NOTE | 2019-08-23 22:14 | Consultation ---
DATE OF CONSULTATION: 08/23/2019 INFECTIOUS DISEASES CONSULTATION CONSULTING PHYSICIAN: Trevor Rogers M.D. ATTENDING PHYSICIAN: Jacoby Arriaga M.D. REFERRING PHYSICIAN: Jacoby Arriaga M.D. REASON FOR CONSULTATION: COVID-19 infection. REASON FOR ADMISSION: Respiratory infection, rule out COVD-19 infection. HISTORY OF PRESENT ILLNESS: This is a 74-year-old female who comes to the [facility] with Chief complaint of congestion, cough. The patient was admitted for possible COVID-19 virus infection. COVID-19 virus testing came back positive. She has no significant fevers. She was given some Levaquin initially, but now she is currently on hydroxychloroquine on day #3 and azithromycin day #2. The patient is in [facility] and is on telemetry. The patient will be continued on these medications for COVID-19 virus infection which again is positive by PCR. REVIEW OF SYSTEMS: Main issue is cough. No fever. No chills. CARDIAC: No chest pain. GASTROINTESTINAL: No nausea or diarrhea. GENITOURINARY: No Muñoz. PULMONARY: With cough SKIN: No rash. NEUROLOGIC: No evidence of seizures. PAST MEDICAL HISTORY: The patient's past medical history includes the following. The patient has a past medical history of hypertension, diabetes, asthma. ALLERGIES: No known drug allergies. SOCIAL HISTORY: Negative for smoking, alcohol, or drug abuse. FAMILY HISTORY: Noncontributory. MEDICATIONS: Upon reviewing the MAR, she is on following medications. She is on azithromycin and hydroxychloroquine. She was on Levaquin which was discontinued, metformin, pantoprazole, insulin, IV fluids. Outside medications noted and reconciliated. PHYSICAL EXAMINATION: VITAL SIGNS: Temperature 98.1, pulse 85, respiratory rate 19, blood pressure 146/81, saturation 95%. GENERAL: Alert, responsive, oriented. She is coughing. The patient is in isolation for COVID-19. HEAD AND NECK: Normocephalic. No icterus or thrush. HEART: No gallop or murmur. ABDOMEN: Soft. Positive bowel sounds. Nontender LUNGS: Few bilateral rhonchi. SKIN: No rash. NEUROLOGIC: Intact. GENITOURINARY: No Muñoz. LINE SITES: Without phlebitis. EXTREMITIES: No cellulitis. PERIPHERAL VASCULAR: No gangrene noted. LABORATORY DATA: White count 8.6, hemoglobin 10.7. Creatinine 0.8. UA had 0 to 2 white cells. COVID-19 virus infection testing by PCR was positive. Chest x-ray showed no acute process. ASSESSMENT AND PLAN: 1. The patient has COVID-19 virus infection with cough, possible upper respiratory infection and bronchitis. Continue hydroxychloroquine #3 treatment out of 5 and also azithromycin day #2/5. Continue treatment. Monitor the patient clinically. The patient will need repeat testing to see if the patient has cleared. Monitor cough at this time. COVID-19 testing was positive by PCR for COVID-19 virus infection. 2. Diabetes. 3. Hypertension. 4. Asthma. 5. Blood sugar and blood pressure treatment per primary care team. 6. No known drug allergies. 7. Social history is negative. 8. Family history is noncontributory. 9. MAR was noted. 10. Case was discussed with RN. 11. Continue COVID isolation for now. Trevor Rogers M.D. DR: Thair JOB#: [id number] CC:
[2019-08-24] VITALS: BP 138/75
[2019-08-24 04:00] VITALS: BP 138/65
[2019-08-24] MEDS: NovoLOG Insulin Flexpen SUBQ SCH ×4 (06:07→20:10)
--- NOTE | 2019-08-24 07:25 | NUR ---
HAND-OFF: Report given to Halley LIRA. pt remains stable condition. endorsed plan of care.
--- NOTE | 2019-08-24 07:26 | NUR ---
NURSE NOTES: Received patient in bed from Ana Hackett, patient is alert awake x4, able to follow commands, able to speak in full sentences. patient is on 2L of NC. patient is in no acute distress, no SOB noted at this time. patient has purewick on, tolerating with out complication. emptied 900ml of yellow/light ruth urine. patient is on lowest position, bed alarm on, and locked. will continue to monitor pt with plan of care. call light within reach.
--- NOTE | 2019-08-24 07:27 | NUR ---
NURSE NOTES: patient is on a contact and droplet isolation room.
[2019-08-24 08:00] VITALS: BP 139/45
[2019-08-24] MEDS: metFORMIN 500mg tab ORAL SCH ×2 (08:15→17:24)
--- NOTE | 2019-08-24 08:20 | NUR ---
NURSE NOTES: patient provided with breakfast tray. patient tolerated without complications.
--- NOTE | 2019-08-24 10:19 | Pulmonology Progress Note ---
Assessment/Plan Assessment/Plan IMPRESSION: 1. Diabetes mellitus with hyperglycemia. 2. Exacerbation of asthma. 3. Positive COVID-19 pneumonia 4. Hypertension. DISCUSSION: Continue insulin sliding scale, steroids, empiric antibiotics, and IV fluids. I will follow carefully. Resume home medications and Lantus Seen by ID re + COVID 19 Jacoby Arriaga M.D. Subjective Interval Events: None new Constitutional: Reports: no symptoms HEENT: Repors: no symptoms Respiratory: Reports: no symptoms Cardiovascular: Reports: no symptoms Gastrointestinal/Abdominal: Reports: no symptoms Genitourinary: Reports: no symptoms Allergies: Coded Allergies: No Known Allergies (Unverified , 08/20/19) Objective Last 24 Hour Vital Signs Date Time Temp Pulse Resp B/P (MAP) Pulse Ox O2 Delivery O2 Flow Rate FiO2 08/24/19 08:00 Nasal Cannula 2.0 08/24/19 08:00 2.0 08/24/19 08:00 97.3 20 139/45 (76) 94 08/24/19 08:00 94 08/24/19 04:00 Nasal Cannula 2.0 08/24/19 04:00 97.6 18 138/65 (89) 98 08/24/19 04:00 2.0 08/24/19 03:39 80 08/24/19 00:00 97.5 18 138/75 (96) 97 08/24/19 00:00 Nasal Cannula 2.0 08/24/19 00:00 81 08/23/19 20:00 Nasal Cannula 2.0 08/23/19 20:00 97.8 19 145/77 (99) 96 08/23/19 20:00 2.0 08/23/19 19:44 83 08/23/19 16:30 98.1 19 146/81 (102) 95 08/23/19 16:00 2.0 08/23/19 16:00 85 08/23/19 16:00 Nasal Cannula 2.0 08/23/19 12:00 86 08/23/19 12:00 2.0 08/23/19 12:00 Nasal Cannula 2.0 08/23/19 12:00 98.4 79 20 142/76 (98) 96 Intake and Output 08/23/19 08/24/19 19:00 07:00 Intake Total 1625 ml 1000 ml Output Total 600 ml 1400 ml Balance 1025 ml -400 ml Intake Oral 800 ml 400 ml IV Total 825 ml 600 ml Output Urine Total 600 ml 1400 ml # Bowel Movements 4 2 General Appearance: no acute distress HEENT: normocephalic Respiratory/Chest: chest wall non-tender Cardiovascular: normal peripheral pulses Abdomen: normal bowel sounds Current Medications Medications (Trade) Dose Ordered Sig/Estelle Route PRN Reason Start Time Stop Time Status Last Admin Dose Admin Dextrose (Dextrose 50%) 25 ml Q30M PRN IV Hypoglycemia 08/21/19 16:45 11/19/19 16:44 Dextrose (Dextrose 50%) 50 ml Q30M PRN IV Hypoglycemia 08/21/19 16:45 11/19/19 16:44 Guaifenesin/ Codeine Phosphate (Robitussin with codeine) 5 ml Q6H PRN ORAL For Cough 08/23/19 12:00 09/22/19 11:59 08/23/19 20:37 Hydroxychloroquine Sulfate (Plaquenil) 200 mg BID ORAL 08/22/19 18:00 08/26/19 09:01 08/24/19 08:15 Insulin Aspart (NovoLOG) BEFORE MEALS AND HS SUBQ 08/21/19 21:00 11/19/19 20:59 08/22/19 20:57 Insulin Detemir (Levemir) 20 units BEDTIME SUBQ 08/21/19 21:00 11/19/19 20:59 08/23/19 20:38 Metformin HCl (Glucophage) 1,000 mg BID ORAL 08/22/19 09:00 09/21/19 08:59 08/24/19 08:15 Pantoprazole (Protonix) 40 mg DAILY ORAL 08/22/19 09:00 09/21/19 08:59 08/24/19 08:15 Sodium Chloride 1,000 ml @ 75 mls/hr [id number] IV 08/21/19 12:45 09/20/19 12:44 08/24/19 08:16 Jacoby Arriaga MD Aug 24, 2019 10:19
--- NOTE | 2019-08-24 10:54 | NUR ---
*-* INSURANCE *-* ALL AVAILABLE CLINICALS HAVE BEEN FAXED TO: [facility] OPAL: ADRIAN REF# [id number] P [phone] OPT. 01 F: [phone]
[2019-08-24 12:00] VITALS: BP 140/55
--- NOTE | 2019-08-24 12:19 | NUR ---
[employer] SI: UPPER RESP INFECTION,COVID 19 T. 97.3 HR 81 RR 20 B/P 138/75 2L NC IS: IVF NS @ 75ML/HR PLAQUENIL PROTONIX DROPLET ISOLATION STEP DOWN STATUS
--- NOTE | 2019-08-24 12:30 | NUR ---
NURSE NOTES: patient's bs is 94, novolog held.
[2019-08-24 16:00] VITALS: BP 119/58
--- NOTE | 2019-08-24 17:33 | NUR ---
NURSE NOTES: patient's bs is 92, novolog held.
--- NOTE | 2019-08-24 17:33 | NUR ---
NURSE NOTES: patient provided with dinner tray.
--- NOTE | 2019-08-24 19:17 | NUR ---
HAND-OFF: Report given to Ana Hackett. endorsed all plan of care to Ana LIRA
--- NOTE | 2019-08-24 19:18 | NUR ---
NURSE NOTES: received pt from Halley LIRA., pt is awake and AOx4 at this moment Croatian speaker. pt is on 2L of NC O2sat is at 96%. no SOB noted at this moment. pt states no pain right now.Left AC IV 24G intact, clean and patent. purewick is on. pt is on lowest position, alarmed, and locked. will continue to monitor pt with plan of care. call light within reach.
[2019-08-24 20:00] VITALS: BP 135/60
[2019-08-24] MEDS: Levemir Flexpen SUBQ SCH (20:09)
[2019-08-25] VITALS: BP 130/58
[2019-08-25 04:00] VITALS: BP 134/63
[2019-08-25] MEDS: NovoLOG Insulin Flexpen SUBQ SCH ×4 (06:06→20:57)
--- NOTE | 2019-08-25 07:26 | NUR ---
HAND-OFF: Report given to Elsie Caraballo RN., pt is stable condition. endorsed plan of care.
--- NOTE | 2019-08-25 07:30 | NUR ---
NURSE NOTES: Report received from Bobbi Hackett RN.Pt asleep in bed easily awakens with verbal command,denies any c/o pain or discomfort,SR on the monitor, encouraged to eat breakfast,pure wick in placed draining yellow urine,skin warm and dry IV site to LAC intact SR up x2 call ray within reach at bedside,HOB elevated,bed lock in lowest position,will continue with plans of care.
[2019-08-25 07:35] LABS: ALANINE AMINOTRANSFERASE 28 U/L (12-78); ALBUMIN 2.6 G/DL (3.4-5.0); ALBUMIN/GLOBULIN RATIO 0.6 (1.0-2.7); ALKALINE PHOSPHATASE 64 U/L (46-116); ANION GAP 9 mmol/L (5-15); ASPARTATE AMINO TRANSFERASE 20 U/L (15-37); BILIRUBIN,TOTAL 0.3 MG/DL (0.2-1.0); BLOOD UREA NITROGEN 13 mg/dL (7-18); CALCIUM 9.4 MG/DL (8.5-10.1); CARBON DIOXIDE 30 MMOL/L (21-32); CHLORIDE 103 MMOL/L (98-107); CREATININE 0.9 MG/DL (0.55-1.30); POTASSIUM 3.7 MMOL/L (3.5-5.1); SODIUM 141 MMOL/L (136-145)
[2019-08-25 07:36] LABS: BASOPHILS % (AUTO) 0.7 % (0.0-2.0); EOSINOPHILS % (AUTO) 1.5 % (0.0-3.0); HEMOGLOBIN 11.4 G/DL (12.0-16.0); LYMPHOCYTES % (AUTO) 23.3 % (20.0-45.0); MEAN CORPUSCULAR VOLUME 84 FL (80-99); MONOCYTES % (AUTO) 9.4 % (1.0-10.0); NEUTROPHILS % (AUTO) 65.2 % (45.0-75.0); PLATELET COUNT 519 K/UL (150-450); RED BLOOD COUNT 4.04 M/UL (4.20-5.40); RED CELL DISTRIBUTION WIDTH 11.9 % (11.6-14.8); WHITE BLOOD COUNT 8.3 K/UL (4.8-10.8)
[2019-08-25] MEDS: metFORMIN 500mg tab ORAL SCH ×2 (08:04→18:10)
[2019-08-25 08:05] VITALS: BP 150/58
--- NOTE | 2019-08-25 11:00 | NUR ---
NURSE NOTES: Pt incontinent of liquid yellow stools in Large amount,kept dry and clean.
[2019-08-25 11:25] VITALS: BP 150/74
--- NOTE | 2019-08-25 11:57 | Pulmonology Progress Note ---
Assessment/Plan Assessment/Plan IMPRESSION: 1. Diabetes mellitus with hyperglycemia. 2. Exacerbation of asthma. 3. Positive COVID-19 pneumonia 4. Hypertension. DISCUSSION: Continue insulin sliding scale, steroids, empiric antibiotics, and IV fluids. I will follow carefully. Resume home medications and Lantus Seen by ID re + COVID 19 Jacoby Arriaga M.D. Subjective Interval Events: None new Constitutional: Reports: no symptoms HEENT: Repors: no symptoms Respiratory: Reports: no symptoms Cardiovascular: Reports: no symptoms Gastrointestinal/Abdominal: Reports: no symptoms Allergies: Coded Allergies: No Known Allergies (Unverified , 08/20/19) Objective Last 24 Hour Vital Signs Date Time Temp Pulse Resp B/P (MAP) Pulse Ox O2 Delivery O2 Flow Rate FiO2 08/25/19 11:25 97.0 72 18 150/74 (99) 99 08/25/19 08:05 97.0 74 18 150/58 (88) 99 08/25/19 08:00 Nasal Cannula 2.0 08/25/19 08:00 91 08/25/19 04:00 2.0 08/25/19 04:00 Nasal Cannula 2.0 08/25/19 04:00 97.5 18 134/63 (86) 97 08/25/19 03:59 73 08/25/19 00:00 Nasal Cannula 2.0 08/25/19 00:00 97.8 19 130/58 (82) 97 08/24/19 23:56 72 08/24/19 21:08 84 08/24/19 20:00 2.0 08/24/19 20:00 97.3 19 135/60 (85) 95 08/24/19 20:00 Nasal Cannula 2.0 08/24/19 16:00 Nasal Cannula 2.0 08/24/19 16:00 87 08/24/19 16:00 97.1 20 119/58 (78) 94 08/24/19 16:00 2.0 08/24/19 12:00 97.1 20 140/55 (83) 94 08/24/19 12:00 Nasal Cannula 2.0 08/24/19 12:00 87 08/24/19 12:00 2.0 Intake and Output 08/24/19 08/25/19 19:00 07:00 Intake Total 875 ml 1125 ml Output Total 1400 ml 1000 ml Balance -525 ml 125 ml Intake Oral 800 ml 450 ml IV Total 75 ml 675 ml Output Urine Total 1400 ml 1000 ml # Bowel Movements 3 General Appearance: no acute distress HEENT: normocephalic Respiratory/Chest: chest wall non-tender Cardiovascular: normal peripheral pulses Abdomen: normal bowel sounds Laboratory Tests 08/25/19 05:40: White Blood Count 8.3, Red Blood Count 4.04L, Hemoglobin 11.4L, Hematocrit 34.0L , Mean Corpuscular Volume 84, Mean Corpuscular Hemoglobin 28.3, Mean Corpuscular Hemoglobin Concent 33.6, Red Cell Distribution Width 11.9, Platelet Count 519H, Mean Platelet Volume 5.9L, Neutrophils (%) (Auto) 65.2, Lymphocytes (%) (Auto) 23.3, Monocytes (%) (Auto) 9.4, Eosinophils (%) (Auto) 1.5, Basophils (%) (Auto) 0.7, Sodium Level 141, Potassium Level 3.7, Chloride Level 103, Carbon Dioxide Level 30, Anion Gap 9, Blood Urea Nitrogen 13, Creatinine 0.9, Estimat Glomerular Filtration Rate > 60, Glucose Level 74, Calcium Level 9.4, Total Bilirubin 0.3, Aspartate Amino Transf (AST/SGOT) 20, Alanine Aminotransferase (ALT/SGPT) 28, Alkaline Phosphatase 64, Total Protein 7.3, Albumin 2.6L, Globulin 4.7, Albumin/Globulin Ratio 0.6L Current Medications Medications (Trade) Dose Ordered Sig/Estelle Route PRN Reason Start Time Stop Time Status Last Admin Dose Admin Dextrose (Dextrose 50%) 25 ml Q30M PRN IV Hypoglycemia 08/21/19 16:45 11/19/19 16:44 Dextrose (Dextrose 50%) 50 ml Q30M PRN IV Hypoglycemia 08/21/19 16:45 11/19/19 16:44 Guaifenesin/ Codeine Phosphate (Robitussin with codeine) 5 ml Q6H PRN ORAL For Cough 08/23/19 12:00 09/22/19 11:59 08/23/19 20:37 Hydroxychloroquine Sulfate (Plaquenil) 200 mg BID ORAL 08/22/19 18:00 08/26/19 09:01 08/25/19 08:04 Insulin Aspart (NovoLOG) BEFORE MEALS AND HS SUBQ 08/21/19 21:00 11/19/19 20:59 08/24/19 20:10 Insulin Detemir (Levemir) 20 units BEDTIME SUBQ 08/21/19 21:00 11/19/19 20:59 08/24/19 20:09 Metformin HCl (Glucophage) 1,000 mg BID ORAL 08/22/19 09:00 09/21/19 08:59 08/25/19 08:04 Pantoprazole (Protonix) 40 mg DAILY ORAL 08/22/19 09:00 09/21/19 08:59 08/25/19 08:04 Sodium Chloride 1,000 ml @ 75 mls/hr [id number] IV 08/21/19 12:45 09/20/19 12:44 08/25/19 08:05 Jacoby Arriaga MD Aug 25, 2019 11:57
--- NOTE | 2019-08-25 15:30 | Infectious Diseases Prog Note ---
Assessment/Plan Assessment/Plan ASSESSMENT AND PLAN: 1. covid-19 virus infection, uri/bronchitis, cough, chest x-ray - negative - continue hydroxychloroquine x 24 hrs - otherwise stable clinically 2. Diabetes. 3. Hypertension. 4. Asthma. 5. Blood sugar and blood pressure treatment per primary care team. 6. No known drug allergies. 7. Social history is negative. 8. Family history is noncontributory. 9. MAR was noted. 10. Case was discussed with RN. 11. Continue COVID isolation for now. Subjective Constitutional: Denies: fever HEENT: Denies: congestion Respiratory: Denies: shortness of breath Cardiovascular: Denies: chest pain Gastrointestinal/Abdominal: Denies: nausea, vomiting, diarrhea Genitourinary: Denies: dysuria Neurologic: Denies: headache Psychiatric: Denies: depression Skin: Denies: rash Hematologic: Denies: bleeding Musculoskeletal: Denies: pain Allergies: Coded Allergies: No Known Allergies (Unverified , 08/20/19) Objective Vital Signs Last 24 Hour Vital Signs Date Time Temp Pulse Resp B/P (MAP) Pulse Ox O2 Delivery O2 Flow Rate FiO2 08/25/19 12:00 81 08/25/19 12:00 Nasal Cannula 2.0 08/25/19 11:25 97.0 72 18 150/74 (99) 99 08/25/19 08:05 97.0 74 18 150/58 (88) 99 08/25/19 08:00 Nasal Cannula 2.0 08/25/19 08:00 91 08/25/19 04:00 2.0 08/25/19 04:00 Nasal Cannula 2.0 08/25/19 04:00 97.5 18 134/63 (86) 97 08/25/19 03:59 73 08/25/19 00:00 Nasal Cannula 2.0 08/25/19 00:00 97.8 19 130/58 (82) 97 08/24/19 23:56 72 08/24/19 21:08 84 08/24/19 20:00 2.0 08/24/19 20:00 97.3 19 135/60 (85) 95 08/24/19 20:00 Nasal Cannula 2.0 08/24/19 16:00 Nasal Cannula 2.0 08/24/19 16:00 87 08/24/19 16:00 97.1 20 119/58 (78) 94 08/24/19 16:00 2.0 Height (Feet): 5 Height (Inches): 1.00 Weight (Pounds): 170 General Appearance: no acute distress HEENT: normocephalic, atraumatic, anicteric, mucous membranes moist Respiratory/Chest: lungs clear, normal breath sounds, no respiratory distress, no accessory muscle use Cardiovascular: normal rate, regular rhythm, no gallop/murmur, no JVD Abdomen: normal bowel sounds, soft, non tender, no organomegaly, non distended Genitourinary: other - no robertson Extremities: no cyanosis Skin: no rash Neurologic/Psychiatric: marketing clerk II-XII grossly normal, alert, oriented x 3, responsive Lymphatic: no neck adenopathy Musculoskeletal: no effusion Objective Chest x-ray - Procedure: XRAY Chest 1v Indication: Cough Technique: One view of the chest Comparison: none Findings: The heart is borderline enlarged. The aorta is tortuous and calcified. There is some right suprahilar scarring and bronchial wall thickening. No definite acute infiltrates or effusions. There are degenerative changes of both acromioclavicular joints. Impression: No definite acute process. Findings as noted Microbiology Date/Time Source Procedure Growth Status 08/20/19 19:33 Blood Blood Culture - Preliminary NO GROWTH AFTER 4 DAYS Resulted 08/20/19 20:29 Nasopharynx Coronavirus COVID-19 PCR ([facility]) - Final Complete Laboratory Tests Test 08/25/19 05:40 White Blood Count 8.3 K/UL (4.8-10.8) Red Blood Count 4.04 M/UL (4.20-5.40) L Hemoglobin 11.4 G/DL (12.0-16.0) L Hematocrit 34.0 % (37.0-47.0) L Mean Corpuscular Volume 84 FL (80-99) Mean Corpuscular Hemoglobin 28.3 PG (27.0-31.0) Mean Corpuscular Hemoglobin Concent 33.6 G/DL (32.0-36.0) Red Cell Distribution Width 11.9 % (11.6-14.8) Platelet Count 519 K/UL (150-450) H Mean Platelet Volume 5.9 FL (6.5-10.1) L Neutrophils (%) (Auto) 65.2 % (45.0-75.0) Lymphocytes (%) (Auto) 23.3 % (20.0-45.0) Monocytes (%) (Auto) 9.4 % (1.0-10.0) Eosinophils (%) (Auto) 1.5 % (0.0-3.0) Basophils (%) (Auto) 0.7 % (0.0-2.0) Sodium Level 141 MMOL/L (136-145) Potassium Level 3.7 MMOL/L (3.5-5.1) Chloride Level 103 MMOL/L (98-107) Carbon Dioxide Level 30 MMOL/L (21-32) Anion Gap 9 mmol/L (5-15) Blood Urea Nitrogen 13 mg/dL (7-18) Creatinine 0.9 MG/DL (0.55-1.30) Estimat Glomerular Filtration Rate > 60 mL/min (>60) Glucose Level 74 MG/DL (74-106) Calcium Level 9.4 MG/DL (8.5-10.1) Total Bilirubin 0.3 MG/DL (0.2-1.0) Aspartate Amino Transf (AST/SGOT) 20 U/L (15-37) Alanine Aminotransferase (ALT/SGPT) 28 U/L (12-78) Alkaline Phosphatase 64 U/L (46-116) Total Protein 7.3 G/DL (6.4-8.2) Albumin 2.6 G/DL (3.4-5.0) L Globulin 4.7 g/dL Albumin/Globulin Ratio 0.6 (1.0-2.7) L Current Medications Medications (Trade) Dose Ordered Sig/Estelle Route PRN Reason Start Time Stop Time Status Last Admin Dose Admin Dextrose (Dextrose 50%) 25 ml Q30M PRN IV Hypoglycemia 08/21/19 16:45 11/19/19 16:44 Dextrose (Dextrose 50%) 50 ml Q30M PRN IV Hypoglycemia 08/21/19 16:45 11/19/19 16:44 Guaifenesin/ Codeine Phosphate (Robitussin with codeine) 5 ml Q6H PRN ORAL For Cough 08/23/19 12:00 09/22/19 11:59 08/23/19 20:37 Hydroxychloroquine Sulfate (Plaquenil) 200 mg BID ORAL 08/22/19 18:00 08/26/19 09:01 08/25/19 08:04 Insulin Aspart (NovoLOG) BEFORE MEALS AND HS SUBQ 08/21/19 21:00 11/19/19 20:59 08/24/19 20:10 Insulin Detemir (Levemir) 20 units BEDTIME SUBQ 08/21/19 21:00 11/19/19 20:59 08/24/19 20:09 Metformin HCl (Glucophage) 1,000 mg BID ORAL 08/22/19 09:00 09/21/19 08:59 08/25/19 08:04 Pantoprazole (Protonix) 40 mg DAILY ORAL 08/22/19 09:00 09/21/19 08:59 08/25/19 08:04 Sodium Chloride 1,000 ml @ 75 mls/hr [id number] IV 08/21/19 12:45 09/20/19 12:44 08/25/19 08:05 Trevor Rogers MD Aug 25, 2019 15:30
[2019-08-25 16:00] VITALS: BP 150/87
--- NOTE | 2019-08-25 16:00 | NUR ---
NURSE NOTES: Pt resting quietly in bed,with on and off dry cough,no resp distress presented.
--- NOTE | 2019-08-25 19:37 | NUR ---
HAND-OFF: Report given to Omar Boyd RN.
[2019-08-25 20:00] VITALS: BP 132/77
--- NOTE | 2019-08-25 20:00 | NUR ---
NURSE NOTES: Received pt in no acute distress;AAOx4 currently denies pain ,denies SOB. Calm and sleepy; HOB elevated; currently on Room air, O2 sats 93-95%Afebrile temp 98.8 orally. PIV site on LAC intact, IVF of NS infuses at 75ml/h. Denies coughing, denies sputum production. Purewick in place, good UOP. Pt cooperative and understands the need for strict isolation and why the staff has to put up PPE prior to entering the room. All needs met at this point. Call light within reach. Continue to observe strict isolation for COVID-19
[2019-08-25] MEDS: Levemir Flexpen SUBQ SCH (20:59)
[2019-08-26] VITALS: BP 132/72
--- NOTE | 2019-08-26 | NUR ---
NURSE NOTES: Afebrile, denies pain, denies SOB; breathing without difficulty on RA saturating 96%. denies coughing; BP stable. Returned back to sleep
[2019-08-26 04:00] VITALS: BP 132/64
--- NOTE | 2019-08-26 04:00 | NUR ---
NURSE NOTES: No respiratory distress; denies SOB. Afebrile. IV site intact. Denies coughing. Sleeping. Continues on droplet and contact isolation.
[2019-08-26] MEDS: NovoLOG Insulin Flexpen SUBQ SCH ×4 (06:22→21:20)
--- NOTE | 2019-08-26 07:10 | NUR ---
HAND-OFF: Report given to Agus Saavedra RN.
--- NOTE | 2019-08-26 07:22 | NUR ---
NURSE NOTES: Pt in bed in bed in low position with HOB in semi-fowlers, pt alert and awake Ox4, IV intact and running NS@75, pt denies pain and SOB, pt states she is cold and wants a couple of blankets, pt is able to ambulate with steady gait, pt positive for CV-19, platelets elevated at 519 no symptoms of clots or redness, no s/s of distress or sob noted.
[2019-08-26] MEDS: metFORMIN 500mg tab ORAL SCH ×2 (08:17→18:00)
[2019-08-26 08:23] VITALS: BP 154/78
--- NOTE | 2019-08-26 11:47 | Pulmonology Progress Note ---
Assessment/Plan Assessment/Plan IMPRESSION: 1. Diabetes mellitus with hyperglycemia. 2. Exacerbation of asthma. 3. Positive COVID-19 pneumonia 4. Hypertension. DISCUSSION: Continue insulin sliding scale, steroids, empiric antibiotics, DC IV fluids. I will follow carefully. Resume home medications and Lantus Seen by ID re + COVID 19 DC planning home in next 1-2 days Jacoby Arriaga M.D. Subjective Interval Events: Feeling better; saturating well on low flow O2 Constitutional: Reports: no symptoms HEENT: Repors: no symptoms Respiratory: Reports: no symptoms Cardiovascular: Reports: no symptoms Gastrointestinal/Abdominal: Reports: no symptoms Allergies: Coded Allergies: No Known Allergies (Unverified , 08/20/19) Objective Last 24 Hour Vital Signs Date Time Temp Pulse Resp B/P (MAP) Pulse Ox O2 Delivery O2 Flow Rate FiO2 08/26/19 08:23 97.3 76 22 154/78 (103) 93 08/26/19 08:14 90 08/26/19 07:50 94 Nasal Cannula 2.0 28 08/26/19 07:38 Nasal Cannula 2.0 08/26/19 04:06 65 08/26/19 04:00 96.8 68 18 132/64 (86) 96 08/26/19 04:00 Nasal Cannula 2.0 08/26/19 00:00 Nasal Cannula 2.0 08/26/19 00:00 98.4 73 18 132/72 (92) 96 08/25/19 20:00 77 08/25/19 20:00 98.8 77 18 132/77 (95) 93 08/25/19 20:00 Nasal Cannula 2.0 08/25/19 16:00 78 08/25/19 16:00 Nasal Cannula 2.0 08/25/19 16:00 98.7 71 20 150/87 (108) 99 08/25/19 12:00 81 08/25/19 12:00 Nasal Cannula 2.0 Intake and Output 08/25/19 08/26/19 19:00 07:00 Intake Total 1280 ml 1305 ml Output Total 1300 ml 900 ml Balance -20 ml 405 ml Intake Oral 1280 ml 480 ml IV Total 825 ml Output Urine Total 1300 ml 900 ml # Bowel Movements 2 General Appearance: no acute distress HEENT: normocephalic Respiratory/Chest: chest wall non-tender, lungs clear Cardiovascular: normal peripheral pulses Abdomen: normal bowel sounds Current Medications Medications (Trade) Dose Ordered Sig/Estelle Route PRN Reason Start Time Stop Time Status Last Admin Dose Admin Dextrose (Dextrose 50%) 25 ml Q30M PRN IV Hypoglycemia 08/21/19 16:45 11/19/19 16:44 Dextrose (Dextrose 50%) 50 ml Q30M PRN IV Hypoglycemia 08/21/19 16:45 11/19/19 16:44 Guaifenesin/ Codeine Phosphate (Robitussin with codeine) 5 ml Q6H PRN ORAL For Cough 08/23/19 12:00 09/22/19 11:59 08/23/19 20:37 Insulin Aspart (NovoLOG) BEFORE MEALS AND HS SUBQ 08/21/19 21:00 11/19/19 20:59 08/24/19 20:10 Insulin Detemir (Levemir) 20 units BEDTIME SUBQ 08/21/19 21:00 11/19/19 20:59 08/25/19 20:59 Metformin HCl (Glucophage) 1,000 mg BID ORAL 08/22/19 09:00 09/21/19 08:59 08/26/19 08:17 Ondansetron HCl (Zofran) 4 mg Q6H PRN IVP Nausea & Vomiting 08/26/19 11:30 09/25/19 11:29 Pantoprazole (Protonix) 40 mg DAILY ORAL 08/22/19 09:00 09/21/19 08:59 08/26/19 08:16 Sodium Chloride 1,000 ml @ 75 mls/hr [id number] IV 08/21/19 12:45 09/20/19 12:44 08/26/19 11:10 Jacoby Arriaga MD Aug 26, 2019 11:47
[2019-08-26 12:00] VITALS: BP 123/87
[2019-08-26 16:30] VITALS: BP 144/78
--- NOTE | 2019-08-26 19:17 | NUR ---
HAND-OFF: Report given to Dereck, endorsed that the pt ate 10% for breakfast and lunch and for dinner she ate 100%. blood sugars were also WNL and no insulin was given.
--- NOTE | 2019-08-26 19:30 | NUR ---
NURSE NOTES: Received report from PANKAJ Garcia. Pt is resting on the bed and awake and alert. On O2 1L via nasal cannula and SaO2 91% noted. IV site intact and no sign of infiltration noted. No fever. Denied pain at this time. Placed fall precaution. Will continue to care plan.
[2019-08-26 20:00] VITALS: BP 148/78
[2019-08-26] MEDS: Levemir Flexpen SUBQ SCH (21:19)
--- NOTE | 2019-08-26 22:07 | NUR ---
NURSE NOTES: Received report from PANKAJ Garcia. Pt is resting on the bed and awake and alert. On O2 1L via nasal cannula and SaO2 91% noted. IV site intact and no sign of infiltration noted. No fever. Denied pain at this time. Placed fall precaution. Will continue to care plan. Addendum: 08/26/19 at 2212 by ARTIE WHITTEN RN RN charting error.
[2019-08-27] VITALS: BP 138/68
[2019-08-27 04:00] VITALS: BP 140/68
[2019-08-27] MEDS: NovoLOG Insulin Flexpen SUBQ SCH ×4 (06:30→20:40)
--- NOTE | 2019-08-27 07:08 | NUR ---
NURSE NOTES: Received report from Dereck LIRA. Pt in bed awake and orientedx4 and able to make needs known. IV site in LFA 24G SL patent and asymptomatic. Side railsx3 up for safety. On 1LPM via N/C,sating 93%. No c/o pain. Bed in lowest position and locked. Call light within easy reach. Will continue to plan of care.
--- NOTE | 2019-08-27 07:08 | NUR ---
HAND-OFF: Report given to PANKAJ Shepard. Pt is sleeping on the bed and no sign of acute distress noted.
[2019-08-27 08:00] VITALS: BP 123/88
[2019-08-27] MEDS: metFORMIN 500mg tab ORAL SCH ×2 (08:16→18:13)
--- NOTE | 2019-08-27 09:06 | NUR ---
NURSE NOTES: Noted sating 88% on room air
[2019-08-27] MEDS: guaiFENesin w/Codeine 5ml Liq ud ORAL PRN (10:14)
--- NOTE | 2019-08-27 10:29 | NUR ---
NURSE NOTES: Noted 94% on room air
--- NOTE | 2019-08-27 10:50 | Pulmonology Progress Note ---
Assessment/Plan Assessment/Plan IMPRESSION: 1. Diabetes mellitus with hyperglycemia. 2. Exacerbation of asthma. 3. Positive COVID-19 pneumonia 4. Hypertension. DISCUSSION: Continue insulin sliding scale, steroids, empiric antibiotics, DC IV fluids. I will follow carefully. Resume home medications and Lantus Seen by ID re + COVID 19 DC planning home today if cleared by ID Jacoby Arriaga M.D. Subjective Interval Events: None new Constitutional: Reports: no symptoms HEENT: Repors: no symptoms Respiratory: Reports: no symptoms Cardiovascular: Reports: no symptoms Gastrointestinal/Abdominal: Reports: no symptoms Allergies: Coded Allergies: No Known Allergies (Unverified , 08/20/19) Objective Last 24 Hour Vital Signs Date Time Temp Pulse Resp B/P (MAP) Pulse Ox O2 Delivery O2 Flow Rate FiO2 08/27/19 08:00 Nasal Cannula 1.0 08/27/19 08:00 98.1 93 20 123/88 (100) 97 08/27/19 08:00 93 08/27/19 04:00 Nasal Cannula 1.0 08/27/19 04:00 98.0 67 20 140/68 (92) 97 08/27/19 03:37 71 08/27/19 00:00 Nasal Cannula 1.0 08/27/19 00:00 64 08/27/19 00:00 98.1 78 20 138/68 (91) 92 08/26/19 20:00 Nasal Cannula 1.0 08/26/19 20:00 97.8 80 20 148/78 (101) 92 08/26/19 19:05 76 08/26/19 16:30 98.6 85 20 144/78 (100) 92 08/26/19 15:29 Nasal Cannula 2.0 08/26/19 15:08 76 08/26/19 12:19 Nasal Cannula 2.0 08/26/19 12:00 96.8 65 18 123/87 (99) 93 08/26/19 11:54 69 Intake and Output 08/26/19 08/27/19 19:00 07:00 Intake Total 360 ml 120 ml Output Total 800 ml 300 ml Balance -440 ml -180 ml Intake Oral 360 ml 120 ml Output Urine Total 800 ml 300 ml # Voids 3 # Bowel Movements 2 General Appearance: no acute distress HEENT: normocephalic Respiratory/Chest: chest wall non-tender Cardiovascular: normal peripheral pulses Abdomen: normal bowel sounds Current Medications Medications (Trade) Dose Ordered Sig/Estelle Route PRN Reason Start Time Stop Time Status Last Admin Dose Admin Dextrose (Dextrose 50%) 25 ml Q30M PRN IV Hypoglycemia 08/21/19 16:45 11/19/19 16:44 Dextrose (Dextrose 50%) 50 ml Q30M PRN IV Hypoglycemia 08/21/19 16:45 11/19/19 16:44 Guaifenesin/ Codeine Phosphate (Robitussin with codeine) 5 ml Q6H PRN ORAL For Cough 08/23/19 12:00 09/22/19 11:59 08/27/19 10:14 Insulin Aspart (NovoLOG) BEFORE MEALS AND HS SUBQ 08/21/19 21:00 11/19/19 20:59 08/26/19 21:20 Insulin Detemir (Levemir) 20 units BEDTIME SUBQ 08/21/19 21:00 11/19/19 20:59 08/26/19 21:19 Metformin HCl (Glucophage) 1,000 mg BID ORAL 08/22/19 09:00 09/21/19 08:59 08/27/19 08:16 Ondansetron HCl (Zofran) 4 mg Q6H PRN IVP Nausea & Vomiting 08/26/19 11:30 09/25/19 11:29 08/26/19 12:22 Pantoprazole (Protonix) 40 mg DAILY ORAL 08/22/19 09:00 09/21/19 08:59 08/27/19 08:16 Jacoby Arriaga MD Aug 27, 2019 10:50
[2019-08-27] MEDS ORDERED: LEVEMIR FL100 UNIT/1 SUBQ (10:51)
[2019-08-27] MEDS ORDERED: GLUCOPHAGE500 MG ORAL (10:51)
[2019-08-27] MEDS ORDERED: NOVOLOG100 UNITS1 SUBQ (10:51)
--- NOTE | 2019-08-27 11:38 | NUR ---
Social Work This Sw received a consult to assist with a home safety evaluation (patient will require home delivery meals). This SW spoke with son, Reggie Johnson ([phone]) who expressed concerns regarding patient to return home today, not being able to care for herself. Son explains patient has shown a decline in the last couple of weeks due to her recent illness. Patient was ambulatory with walker prior, lives alone in a Senior Housing and attending Adult Day Care (five days per week). Son was unable to recall name of the center. Son reports patient had been falling, with incontinence of bowel and bladder and stating he does not live withher, nor feels he can manage her care upon discharge. This SW observed patient with nursing (outside of the room), while patient was unable to ambulate independently. P.T to evaluate and treat as well. Patient does not appear safer to return home independently at this time; this SW recommends SNF placement (patient will need two negatives for COVID-19, according to case management). Nursing informed. This SW provided resources to son (when patient is safe to discharge to home independently): [facility] caregiver contact (son to apply as her caregiver), and Meals on wheels, along with list of grocery stores to deliver food. Son in agreement with SNF placement, while explaining he will follow up with going to patients home regularly (every other day) to assist as needed with meals as well (as long as patient is negative for COVID-19 and can manage her own ADLS, ambulation independently, as before). This SW made an attempt to locate daughter, Re @ [phone]. No return call at this time. SonReggie explains daughter and rest of family live two hours away and unable to assist patient at this time.
[2019-08-27 12:00] VITALS: BP 151/88
--- NOTE | 2019-08-27 12:00 | NUR ---
NURSE NOTES: Pt seen by PT and social service(SSD). PT and SSD state pt is not safe at home alone to take care of herself. And the son and daughter of the pt stated they can not take care of their mother due to positive Covid 19. Physical therapy recommended to discharge the pt to SNF due to weakness. Made Dr. Trujillo aware and discharge order canceled by dr. Arriaga
--- NOTE | 2019-08-27 13:58 | NUR ---
NURSE NOTES: Patient downgraded to med/surge by
--- NOTE | 2019-08-27 14:30 | NUR ---
SCHOOL SPEECH THERAPIST: REVIEW SI: COVID-19 VIRUS DETECTED . PNA T 98.4 HR 88 RR 20 BP 151/88 SAT 92% NC/1L REPEAT COVID-19 VIRUS TEST POST TX PENDING IS: GUAIFENESIN w/CODEINE 5MG ORAL Q6HR PRN NOVOLOG SUBQ AC+HS LEVEMIR 20 UNITS SUBQ BEDTIME STEP DOWN STATUS DCP: PATIENT IS FROM HOME. ORDER FOR DC TO SNF FOR PT NOTED. PATIENT WILL NEED COVID-19 VIRUS NOT DETECTED TEST RESULT x2 TO BE ACCEPTED BY SNF.
--- NOTE | 2019-08-27 14:47 | NUR ---
*-* INSURANCE *-* ALL AVAILABLE CLINICALS HAVE BEEN FAXED TO: [facility] OPAL: ADRIAN REF# [id number] P [phone] OPT. 01 F: [phone]
[2019-08-27 16:00] VITALS: BP 148/79
--- NOTE | 2019-08-27 19:40 | NUR ---
HAND-OFF: Report given to Kenrick LIRA. Pt remains stable.
--- NOTE | 2019-08-27 19:45 | NUR ---
NURSE NOTES: Pt received from Min, RN alert and oriented x4, primarily Syrian-speaking with no acute s/s of distress noted. IV site asymptomatic and patent. Bed in lowest position, call light and belongings within reach.
[2019-08-27 20:00] VITALS: BP 141/88
[2019-08-27] MEDS: Levemir Flexpen SUBQ SCH (20:39)
--- NOTE | 2019-08-27 21:21 | Infectious Diseases Prog Note ---
Assessment/Plan Assessment/Plan ASSESSMENT AND PLAN: 1. covid-19 virus infection, uri/bronchitis, cough, chest x-ray - negative - s/p continue hydroxychloroquine - stable clinically - cleared from ID standpoint for discharge - d/w Dr. Arriaga 2. Diabetes. 3. Hypertension. 4. Asthma. 5. Blood sugar and blood pressure treatment per primary care team. 6. No known drug allergies. 7. Social history is negative. 8. Family history is noncontributory. 9. MAR was noted. 10. Case was discussed with RN. 11. Continue COVID isolation for now. Subjective Constitutional: Reports: fatigue; Denies: fever HEENT: Denies: congestion Respiratory: Reports: dry cough - less; Denies: shortness of breath Cardiovascular: Denies: chest pain Gastrointestinal/Abdominal: Denies: nausea, vomiting, diarrhea Genitourinary: Reports: other - no robertson Psychiatric: Reports: other - NA Skin: Denies: rash Hematologic: Denies: bleeding Musculoskeletal: Denies: pain Allergies: Coded Allergies: No Known Allergies (Unverified , 08/20/19) Objective Vital Signs Last 24 Hour Vital Signs Date Time Temp Pulse Resp B/P (MAP) Pulse Ox O2 Delivery O2 Flow Rate FiO2 08/27/19 20:00 Nasal Cannula 1.0 08/27/19 20:00 80 08/27/19 20:00 98.3 87 20 141/88 (105) 96 08/27/19 16:00 98.0 80 20 148/79 (102) 93 08/27/19 16:00 Nasal Cannula 1.0 08/27/19 16:00 73 08/27/19 12:00 98.4 88 20 151/88 (109) 92 08/27/19 12:00 89 08/27/19 12:00 Nasal Cannula 1.0 08/27/19 08:00 Nasal Cannula 1.0 08/27/19 08:00 98.1 93 20 123/88 (100) 97 08/27/19 08:00 93 08/27/19 04:00 Nasal Cannula 1.0 08/27/19 04:00 98.0 67 20 140/68 (92) 97 08/27/19 03:37 71 08/27/19 00:00 Nasal Cannula 1.0 08/27/19 00:00 64 08/27/19 00:00 98.1 78 20 138/68 (91) 92 Height (Feet): 5 Height (Inches): 1.00 Weight (Pounds): 170 General Appearance: no acute distress HEENT: normocephalic, atraumatic, anicteric, supple, no JVD Respiratory/Chest: no accessory muscle use, rhonchi - bilaterally Cardiovascular: normal rate, regular rhythm Abdomen: normal bowel sounds, soft, non tender, no organomegaly Genitourinary: other - no robertson Extremities: no cyanosis Skin: no rash Neurologic/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 The aorta is tortuous and calcified. There is some right suprahilar scarring and bronchial wall thickening. No definite acute infiltrates or effusions. There are degenerative changes of both acromioclavicular joints. Impression: No definite acute process. Findings as noted Microbiology Date/Time Source Procedure Growth Status 08/20/19 19:33 Blood Blood Culture - Final NO GROWTH AFTER 5 DAYS Complete 08/20/19 20:29 Nasopharynx Coronavirus COVID-19 PCR ([facility]) - Final Complete Labs Test 08/25/19 05:40 White Blood Count 8.3 K/UL (4.8-10.8) Red Blood Count 4.04 M/UL (4.20-5.40) Hemoglobin 11.4 G/DL (12.0-16.0) Hematocrit 34.0 % (37.0-47.0) Mean Corpuscular Volume 84 FL (80-99) Mean Corpuscular Hemoglobin 28.3 PG (27.0-31.0) Mean Corpuscular Hemoglobin Concent 33.6 G/DL (32.0-36.0) Red Cell Distribution Width 11.9 % (11.6-14.8) Platelet Count 519 K/UL (150-450) Mean Platelet Volume 5.9 FL (6.5-10.1) Neutrophils (%) (Auto) 65.2 % (45.0-75.0) Lymphocytes (%) (Auto) 23.3 % (20.0-45.0) Monocytes (%) (Auto) 9.4 % (1.0-10.0) Eosinophils (%) (Auto) 1.5 % (0.0-3.0) Basophils (%) (Auto) 0.7 % (0.0-2.0) Sodium Level 141 MMOL/L (136-145) Potassium Level 3.7 MMOL/L (3.5-5.1) Chloride Level 103 MMOL/L (98-107) Carbon Dioxide Level 30 MMOL/L (21-32) Anion Gap 9 mmol/L (5-15) Blood Urea Nitrogen 13 mg/dL (7-18) Creatinine 0.9 MG/DL (0.55-1.30) Estimat Glomerular Filtration Rate > 60 mL/min (>60) Glucose Level 74 MG/DL (74-106) Calcium Level 9.4 MG/DL (8.5-10.1) Total Bilirubin 0.3 MG/DL (0.2-1.0) Aspartate Amino Transf (AST/SGOT) 20 U/L (15-37) Alanine Aminotransferase (ALT/SGPT) 28 U/L (12-78) Alkaline Phosphatase 64 U/L (46-116) Total Protein 7.3 G/DL (6.4-8.2) Albumin 2.6 G/DL (3.4-5.0) Globulin 4.7 g/dL Albumin/Globulin Ratio 0.6 (1.0-2.7) Current Medications Medications (Trade) Dose Ordered Sig/Estelle Route PRN Reason Start Time Stop Time Status Last Admin Dose Admin Dextrose (Dextrose 50%) 25 ml Q30M PRN IV Hypoglycemia 08/21/19 16:45 11/19/19 16:44 Dextrose (Dextrose 50%) 50 ml Q30M PRN IV Hypoglycemia 08/21/19 16:45 11/19/19 16:44 Guaifenesin/ Codeine Phosphate (Robitussin with codeine) 5 ml Q6H PRN ORAL For Cough 08/23/19 12:00 09/22/19 11:59 08/27/19 10:14 Insulin Aspart (NovoLOG) BEFORE MEALS AND HS SUBQ 08/21/19 21:00 11/19/19 20:59 08/27/19 20:40 Insulin Detemir (Levemir) 20 units BEDTIME SUBQ 08/21/19 21:00 11/19/19 20:59 08/27/19 20:39 Metformin HCl (Glucophage) 1,000 mg BID ORAL 08/22/19 09:00 09/21/19 08:59 08/27/19 18:13 Ondansetron HCl (Zofran) 4 mg Q6H PRN IVP Nausea & Vomiting 08/26/19 11:30 09/25/19 11:29 08/26/19 12:22 Pantoprazole (Protonix) 40 mg DAILY ORAL 08/22/19 09:00 09/21/19 08:59 08/27/19 08:16 Trevor Rogers MD Aug 27, 2019 21:21
[2019-08-28] VITALS: BP 138/84
[2019-08-28 04:00] VITALS: BP 140/84
[2019-08-28] MEDS: NovoLOG Insulin Flexpen SUBQ SCH ×4 (06:30→21:47)
--- NOTE | 2019-08-28 07:37 | NUR ---
NURSE NOTES: Received report from Kenrick LIRA. Pt in bed awake and oriented x4 able to make needs known. Bed in lowest position and locked.Call light within easy reach. No c/o pain. Denied SOB, sating with 93-94% on room air. IV site in LFA 24G SL patent and asymptomatic. Will continue to plan of care.
[2019-08-28 08:00] VITALS: BP 153/93
[2019-08-28] MEDS: metFORMIN 500mg tab ORAL SCH ×2 (08:42→18:07)
[2019-08-28] MEDS: guaiFENesin w/Codeine 5ml Liq ud ORAL PRN (08:42)
--- NOTE | 2019-08-28 09:50 | NUR ---
UNDERWATER WELDER: REVIEW SI: COVID-19 VIRUS DETECTED . PNA T 98.0 HR 77 RR 20 BP 153/93 SAT 96% NC/1L PENDING COVID-19 VIRUS TESTING IS: GUAIFENESIN w/CODEINE 5MG ORAL Q6HR PRN NOVOLOG SUBQ AC+HS LEVEMIR 20 UNITS SUBQ BEDTIME PHYSICAL THERAPY DAILY STEP DOWN STATUS DCP: PATIENT IS FROM HOME. ORDER FOR DC TO SNF FOR PHYSICAL THERAPY. PATIENT WILL NEED COVID-19 VIRUS NOT DETECTED TEST RESULT x2 TO BE ACCEPTED BY SNF.
--- NOTE | 2019-08-28 10:02 | NUR ---
NURSE NOTES: Made Dr. Arriaga aware of High BP with 153/90. No new order received
--- NOTE | 2019-08-28 10:04 | NUR ---
*-* INSURANCE *-* ALL AVAILABLE CLINICALS HAVE BEEN FAXED TO: [facility] OPAL: ADRIAN REF# [id number] P [phone] OPT. 01 F: [phone]
--- NOTE | 2019-08-28 10:09 | NUR ---
RD ASSESSMENT & RECOMMENDATIONS SEE CARE ACTIVITY FOR COMPLETE ASSESSMENT DAILY ESTIMATED NEEDS: Needs based on DM/ 55kg abw 25-30 kcals/kg 3730-1843 total kcals 1-1.3 g protein/kg 55-71 g total protein 25-30 mL/kg 8651-6554 total fluid mLs NUTRITION DIAGNOSIS: Altered nutrition related lab values R/T diabetes as evidenced by elev POC glu (104-167). CURRENT DIET:CCHO MED PO DIET RECOMMENDATIONS: CCHO MED/ texture as tolerated ADDITIONAL RECOMMENDATIONS: * Standing wt as able for accurate CBW * A1C for eval of glycemic control * Monitor for hypoglycemia while PO intake variable/poor * Glucerna Q daily w/ poor/variable PO intake
--- NOTE | 2019-08-28 10:36 | Pulmonology Progress Note ---
Assessment/Plan Assessment/Plan IMPRESSION: 1. Diabetes mellitus with hyperglycemia. 2. Exacerbation of asthma. 3. Positive COVID-19 pneumonia 4. Hypertension. DISCUSSION: Continue insulin sliding scale, steroids, empiric antibiotics, Off IV fluids. I will follow carefully. Seen by ID re + COVID 19 DC planning to SNF today if cleared by ID and second COVID 19 pcr negative Jacoby Arriaga M.D. Subjective Interval Events: None new Constitutional: Reports: no symptoms HEENT: Repors: no symptoms Respiratory: Reports: no symptoms Cardiovascular: Reports: no symptoms Gastrointestinal/Abdominal: Reports: no symptoms Allergies: Coded Allergies: No Known Allergies (Unverified , 08/20/19) Objective Last 24 Hour Vital Signs Date Time Temp Pulse Resp B/P (MAP) Pulse Ox O2 Delivery O2 Flow Rate FiO2 08/28/19 08:00 98.0 77 20 153/93 (113) 96 08/28/19 08:00 Nasal Cannula 1.0 08/28/19 08:00 88 08/28/19 04:00 98.4 87 20 140/84 (102) 97 08/28/19 04:00 Nasal Cannula 1.0 08/28/19 04:00 85 08/28/19 00:00 77 08/28/19 00:00 Nasal Cannula 1.0 08/28/19 00:00 98.3 84 20 138/84 (102) 94 08/27/19 20:00 Nasal Cannula 1.0 08/27/19 20:00 80 08/27/19 20:00 98.3 87 20 141/88 (105) 96 08/27/19 16:00 98.0 80 20 148/79 (102) 93 08/27/19 16:00 Nasal Cannula 1.0 08/27/19 16:00 73 08/27/19 12:00 98.4 88 20 151/88 (109) 92 08/27/19 12:00 89 08/27/19 12:00 Nasal Cannula 1.0 Intake and Output 08/27/19 08/28/19 19:00 07:00 Intake Total 500 ml 500 ml Output Total 600 ml 800 ml Balance -100 ml -300 ml Intake Oral 500 ml 500 ml Output Urine Total 600 ml 800 ml # Bowel Movements 1 General Appearance: no acute distress HEENT: normocephalic Respiratory/Chest: chest wall non-tender Cardiovascular: normal peripheral pulses Abdomen: normal bowel sounds Current Medications Medications (Trade) Dose Ordered Sig/Estelle Route PRN Reason Start Time Stop Time Status Last Admin Dose Admin Dextrose (Dextrose 50%) 25 ml Q30M PRN IV Hypoglycemia 08/21/19 16:45 11/19/19 16:44 Dextrose (Dextrose 50%) 50 ml Q30M PRN IV Hypoglycemia 08/21/19 16:45 11/19/19 16:44 Guaifenesin/ Codeine Phosphate (Robitussin with codeine) 5 ml Q6H PRN ORAL For Cough 08/23/19 12:00 09/22/19 11:59 08/28/19 08:42 Insulin Aspart (NovoLOG) BEFORE MEALS AND HS SUBQ 08/21/19 21:00 11/19/19 20:59 08/27/19 20:40 Insulin Detemir (Levemir) 20 units BEDTIME SUBQ 08/21/19 21:00 11/19/19 20:59 08/27/19 20:39 Metformin HCl (Glucophage) 1,000 mg BID ORAL 08/22/19 09:00 09/21/19 08:59 08/28/19 08:42 Ondansetron HCl (Zofran) 4 mg Q6H PRN IVP Nausea & Vomiting 08/26/19 11:30 09/25/19 11:29 08/26/19 12:22 Pantoprazole (Protonix) 40 mg DAILY ORAL 08/22/19 09:00 09/21/19 08:59 08/28/19 08:42 Jacoby Arriaga MD Aug 28, 2019 10:36
[2019-08-28 12:00] VITALS: BP 137/86
[2019-08-28 16:30] VITALS: BP 141/81
--- NOTE | 2019-08-28 19:19 | NUR ---
HAND-OFF: Report given to Devyn LRIA. Pt remains stable.
--- NOTE | 2019-08-28 19:25 | NUR ---
NURSE NOTES: Pt report received from MIN RN. pt remains stable. pt is alert and oriented times 4, no acute neuro abnormalities noted. pt is on room air, sating at 99%, no acute resp distress noted. pt is on manager cardiac cath showing NSR no acute cardiac distress noted. pt bed is low, locked, armed, call light within reach, bed rails up times 3. will follow plan of care.
[2019-08-28 20:00] VITALS: BP 135/70
[2019-08-28] MEDS: Levemir Flexpen SUBQ SCH (21:47)
[2019-08-29] VITALS: BP 142/79
[2019-08-29 04:00] VITALS: BP 137/76
[2019-08-29] MEDS: NovoLOG Insulin Flexpen SUBQ SCH ×4 (06:54→21:00)
--- NOTE | 2019-08-29 07:25 | NUR ---
HAND-OFF: Report given to RU LIRA. pt remains stable.
--- NOTE | 2019-08-29 07:25 | NUR ---
NURSE NOTES: Received report from Devyn LIRA. Pt in bed asleep in bed. Bed in lowest position and locked. Call light within easy reach. No c/o pain. reported sating with 93-96% on room air. Sinus rhythm noted. IV site in LFA 24G SL patent and asymptomatic. Will continue to plan of care.
[2019-08-29 08:00] VITALS: BP 130/80
[2019-08-29] MEDS: metFORMIN 500mg tab ORAL SCH ×2 (08:43→17:27)
--- NOTE | 2019-08-29 10:58 | Pulmonology Progress Note ---
Assessment/Plan Assessment/Plan IMPRESSION: 1. Diabetes mellitus with hyperglycemia. 2. Exacerbation of asthma. 3. Positive COVID-19 pneumonia 4. Hypertension. DISCUSSION: Continue insulin sliding scale, steroids, empiric antibiotics, Off IV fluids. I will follow carefully. Seen by ID re + COVID 19 DC planning to SNF today if cleared by ID and second COVID 19 pcr negative Jacoby Arriaga M.D. Subjective Interval Events: None new Constitutional: Reports: no symptoms HEENT: Repors: no symptoms Respiratory: Reports: no symptoms Cardiovascular: Reports: no symptoms Gastrointestinal/Abdominal: Reports: no symptoms Allergies: Coded Allergies: No Known Allergies (Unverified , 08/20/19) Objective Last 24 Hour Vital Signs Date Time Temp Pulse Resp B/P (MAP) Pulse Ox O2 Delivery O2 Flow Rate FiO2 08/29/19 10:14 Room Air 08/29/19 09:00 Room Air 08/29/19 08:00 96.9 96 21 130/80 (97) 96 08/29/19 08:00 80 08/29/19 04:00 101 08/29/19 04:00 Room Air 08/29/19 04:00 97.9 73 18 137/76 (96) 99 08/29/19 00:00 97.6 80 18 142/79 (100) 98 08/29/19 00:00 Room Air 08/28/19 23:28 81 08/28/19 20:00 77 08/28/19 20:00 97.9 84 20 135/70 (91) 96 08/28/19 20:00 Room Air 08/28/19 16:30 98.0 71 20 141/81 (101) 94 08/28/19 16:00 Room Air 08/28/19 16:00 87 08/28/19 12:00 107 08/28/19 12:00 97.7 78 20 137/86 (103) 97 08/28/19 12:00 Room Air Intake and Output 08/28/19 08/29/19 19:00 07:00 Intake Total 600 ml Balance 600 ml Intake Oral 600 ml # Voids 3 General Appearance: no acute distress HEENT: normocephalic Respiratory/Chest: chest wall non-tender, lungs clear Cardiovascular: normal peripheral pulses, normal rate Abdomen: normal bowel sounds Current Medications Medications (Trade) Dose Ordered Sig/Estelle Route PRN Reason Start Time Stop Time Status Last Admin Dose Admin Dextrose (Dextrose 50%) 25 ml Q30M PRN IV Hypoglycemia 08/21/19 16:45 11/19/19 16:44 Dextrose (Dextrose 50%) 50 ml Q30M PRN IV Hypoglycemia 08/21/19 16:45 11/19/19 16:44 Guaifenesin/ Codeine Phosphate (Robitussin with codeine) 5 ml Q6H PRN ORAL For Cough 08/23/19 12:00 09/22/19 11:59 08/28/19 08:42 Insulin Aspart (NovoLOG) BEFORE MEALS AND HS SUBQ 08/21/19 21:00 11/19/19 20:59 08/29/19 06:54 Insulin Detemir (Levemir) 20 units BEDTIME SUBQ 08/21/19 21:00 11/19/19 20:59 08/28/19 21:47 Metformin HCl (Glucophage) 1,000 mg BID ORAL 08/22/19 09:00 09/21/19 08:59 08/29/19 08:43 Ondansetron HCl (Zofran) 4 mg Q6H PRN IVP Nausea & Vomiting 08/26/19 11:30 09/25/19 11:29 08/28/19 12:32 Pantoprazole (Protonix) 40 mg DAILY ORAL 08/22/19 09:00 09/21/19 08:59 08/29/19 08:43 Jacoby Arriaga MD Aug 29, 2019 10:58
[2019-08-29 12:00] VITALS: BP 106/80
--- NOTE | 2019-08-29 13:02 | NUR ---
*-* INSURANCE *-* ALL AVAILABLE CLINICALS HAVE BEEN FAXED TO: [facility] OPAL: ADRIAN REF# [id number] P [phone] OPT. 01 F: [phone]
[2019-08-29 16:00] VITALS: BP 137/85
--- NOTE | 2019-08-29 17:27 | NUR ---
CASE MANAGEMENT:REVIEW SI;POSITIVE COVD-19 PNA 96.9 103 21 106/80 96% ON RA NO LABS AVAILABLE IS;ROBITUSSIN W/CODEINE PO Q6 HRS PRN PROTONIX PO WD LETITIA STATUS DCP; PATIENT IS FROM HOME
--- NOTE | 2019-08-29 17:50 | Infectious Diseases Prog Note ---
Assessment/Plan Assessment/Plan ASSESSMENT AND PLAN: 1. covid-19 virus infection, uri/bronchitis, cough, chest x-ray - negative - s/p hydroxychloroquine - stable clinically - cleared from ID standpoint for discharge - will sign off 2. Diabetes. 3. Hypertension. 4. Asthma. 5. Blood sugar and blood pressure treatment per primary care team. 6. No known drug allergies. 7. Social history is negative. 8. Family history is noncontributory. 9. MAR was noted. 10. Case was discussed with RN. 11. Continue COVID isolation for now. Subjective Constitutional: Reports: fatigue HEENT: Denies: congestion Respiratory: Reports: dry cough - less; Denies: shortness of breath Cardiovascular: Denies: chest pain Gastrointestinal/Abdominal: Denies: nausea, vomiting, diarrhea Neurologic: Reports: weakness Skin: Denies: rash Hematologic: Denies: bleeding Musculoskeletal: Denies: pain Allergies: Coded Allergies: No Known Allergies (Unverified , 08/20/19) Objective Vital Signs Last 24 Hour Vital Signs Date Time Temp Pulse Resp B/P (MAP) Pulse Ox O2 Delivery O2 Flow Rate FiO2 08/29/19 16:00 103 08/29/19 16:00 96.4 82 17 137/85 (102) 98 08/29/19 12:00 97.2 97 18 106/80 (89) 97 08/29/19 12:00 92 08/29/19 10:14 Room Air 08/29/19 09:00 Room Air 08/29/19 08:00 96.9 96 21 130/80 (97) 96 08/29/19 08:00 80 08/29/19 04:00 101 08/29/19 04:00 Room Air 08/29/19 04:00 97.9 73 18 137/76 (96) 99 08/29/19 00:00 97.6 80 18 142/79 (100) 98 08/29/19 00:00 Room Air 08/28/19 23:28 81 08/28/19 20:00 77 08/28/19 20:00 97.9 84 20 135/70 (91) 96 08/28/19 20:00 Room Air Height (Feet): 5 Height (Inches): 1.00 Weight (Pounds): 168 General Appearance: no acute distress HEENT: normocephalic, atraumatic, anicteric, mucous membranes moist Respiratory/Chest: lungs clear, normal breath sounds, no respiratory distress, no accessory muscle use Cardiovascular: normal rate, regular rhythm, no gallop/murmur, no JVD Abdomen: normal bowel sounds, soft, non tender, no organomegaly, non distended Genitourinary: other - no robertson Extremities: no cyanosis Skin: no rash Neurologic/Psychiatric: mechanic helper 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 The aorta is tortuous and calcified. There is some right suprahilar scarring and bronchial wall thickening. No definite acute infiltrates or effusions. There are degenerative changes of both acromioclavicular joints. Impression: No definite acute process. Findings as noted blood cultures - negative covid-19 testing - positive wbc - 8.3 hgb - 11.4 cr - 0.9 Current Medications Medications (Trade) Dose Ordered Sig/Estelle Route PRN Reason Start Time Stop Time Status Last Admin Dose Admin Dextrose (Dextrose 50%) 25 ml Q30M PRN IV Hypoglycemia 08/21/19 16:45 11/19/19 16:44 Dextrose (Dextrose 50%) 50 ml Q30M PRN IV Hypoglycemia 08/21/19 16:45 11/19/19 16:44 Guaifenesin/ Codeine Phosphate (Robitussin with codeine) 5 ml Q6H PRN ORAL For Cough 08/23/19 12:00 09/22/19 11:59 08/28/19 08:42 Insulin Aspart (NovoLOG) BEFORE MEALS AND HS SUBQ 08/21/19 21:00 11/19/19 20:59 08/29/19 17:28 Insulin Detemir (Levemir) 20 units BEDTIME SUBQ 08/21/19 21:00 11/19/19 20:59 08/28/19 21:47 Metformin HCl (Glucophage) 1,000 mg BID ORAL 08/22/19 09:00 09/21/19 08:59 08/29/19 17:27 Ondansetron HCl (Zofran) 4 mg Q6H PRN IVP Nausea & Vomiting 08/26/19 11:30 09/25/19 11:29 08/28/19 12:32 Pantoprazole (Protonix) 40 mg DAILY ORAL 08/22/19 09:00 09/21/19 08:59 08/29/19 08:43 Trevor Rogers MD Aug 29, 2019 17:50
--- NOTE | 2019-08-29 19:25 | NUR ---
NURSE NOTES: Pt report received from Mandy LIRA. pt remains stable. pt is alert and oriented times 4, able to follow commands. pt is on room air, able to sat at 99%, no acute resp distress noted. pt is on apparatus cleaner showing NSR, no acute cardiac distress noted. pt bed is low, locked, armed, call light within reach, bed rails up times 3. will follow plan of care.
--- NOTE | 2019-08-29 19:29 | NUR ---
HAND-OFF: Report given to james chappell.
[2019-08-29 20:00] VITALS: BP 130/84
[2019-08-29] MEDS: Levemir Flexpen SUBQ SCH (22:04)
--- NOTE | 2019-08-29 23:27 | NUR ---
NURSE NOTES: Received report from PANKAJ Shepard. Patient was transferred to Telemetry unit from SDU without incident. No signs of acute distress noted; denies pain at this time. AOx4; able to make needs known. Checked IV site; patent and flushed. No erythema, bleeding, or infiltration noted. Belongings list checked with transferring RN and patient. Skin assessment performed; skin is intact. Bed at lowest position, brakes on, siderails up x3. Call light within reach. Will continue to monitor.
--- NOTE | 2019-08-29 23:29 | NUR ---
NURSE NOTES: Pt transferred to TELE TO JORDAN LIRA. pt remains stable.
[2019-08-30] VITALS: BP 118/77
[2019-08-30] MEDS ORDERED: guaiFENesin w/Codeine 5ml Liq ud ORAL PRN
--- NOTE | 2019-08-30 02:54 | NUR ---
NURSE NOTES: Patient is asleep lying semi-malin's; resting comfortably. No signs of acute distress or pain noted at this time.
[2019-08-30 04:00] VITALS: BP 139/82
[2019-08-30] MEDS: NovoLOG Insulin Flexpen SUBQ SCH ×4 (06:30→21:00)
--- NOTE | 2019-08-30 07:40 | NUR ---
HAND-OFF: Report given to PANKAJ Mike. Patient is asleep lying semi-malin's; resting comfortably. In stable condition.
--- NOTE | 2019-08-30 08:06 | NUR ---
NURSE NOTES: Pt asleep in bed, breathing easily on room air, awoke to soft voice, denies SOB and denies pain at this time. Vital signs stable with SR @ 85 on monitor. IV access LAC flushed with 10 ml NS and locked. Bed left in low position, side rails up x 2 and call light left near pt's hand.
[2019-08-30 08:17] VITALS: BP 122/76
--- NOTE | 2019-08-30 08:46 | NUR ---
CASE MANAGEMENT:REVIEW 08/30/19 SI: COVID 19 PNEUMONIA 97.7 85 16 122/76 97% ON RA IS: LEVEMIR SQ QHS METFORMIN PO BID PROTONIX PO QD SS INSULIN AC+HS : NOW ON TELEMETRY PLAN: PATIENT IS FROM HOME BUT DR DOSS IS REQUESTING SNF PLACEMENT..DC WHEN SNF SECURED BY HEALTH PLAN AMBULATING 20FT X3 BUT NEEDS FREQUENT STOPS TO REST
[2019-08-30] MEDS: metFORMIN 500mg tab ORAL SCH ×2 (09:04→16:58)
--- NOTE | 2019-08-30 10:20 | Pulmonology Progress Note ---
Assessment/Plan Assessment/Plan IMPRESSION: 1. Diabetes mellitus with hyperglycemia. 2. Exacerbation of asthma. 3. Positive COVID-19 pneumonia 4. Hypertension. DISCUSSION: Continue diabetes control Second COVID 19 pending I will follow carefully. Seen by ID re + COVID 19 DC planning to SNF if second COVID 19 pcr negative Jacoby Arriaga M.D. Subjective Interval Events: Ambulating better Constitutional: Reports: no symptoms HEENT: Repors: no symptoms Respiratory: Reports: no symptoms Cardiovascular: Reports: no symptoms Allergies: Coded Allergies: No Known Allergies (Unverified , 08/20/19) Objective Last 24 Hour Vital Signs Date Time Temp Pulse Resp B/P (MAP) Pulse Ox O2 Delivery O2 Flow Rate FiO2 08/30/19 08:17 97.7 85 16 122/76 (91) 97 08/30/19 08:14 Room Air 08/30/19 04:00 81 08/30/19 04:00 98.1 86 18 139/82 (101) 95 08/30/19 00:00 79 08/30/19 00:00 97.8 80 20 118/77 (91) 96 08/29/19 21:00 Room Air 08/29/19 20:00 98.8 87 17 130/84 (99) 99 08/29/19 19:02 83 08/29/19 16:00 103 08/29/19 16:00 96.4 82 17 137/85 (102) 98 08/29/19 12:00 97.2 97 18 106/80 (89) 97 08/29/19 12:00 92 Intake and Output 08/29/19 08/30/19 19:00 07:00 Intake Total 120 ml Output Total 500 ml Balance -380 ml Intake Oral 120 ml Output Urine Total 500 ml # Bowel Movements 1 General Appearance: no acute distress HEENT: normocephalic Respiratory/Chest: chest wall non-tender Cardiovascular: normal peripheral pulses Abdomen: normal bowel sounds Current Medications Medications (Trade) Dose Ordered Sig/Estelle Route PRN Reason Start Time Stop Time Status Last Admin Dose Admin Dextrose (Dextrose 50%) 25 ml Q30M PRN IV Hypoglycemia 08/29/19 23:45 11/19/19 16:44 Dextrose (Dextrose 50%) 50 ml Q30M PRN IV Hypoglycemia 08/29/19 23:45 11/19/19 16:44 Guaifenesin/ Codeine Phosphate (Robitussin with codeine) 5 ml Q6H PRN ORAL For Cough 08/30/19 00:00 09/22/19 11:59 Insulin Aspart (NovoLOG) BEFORE MEALS AND HS SUBQ 08/30/19 06:30 11/19/19 20:59 Insulin Detemir (Levemir) 20 units BEDTIME SUBQ 08/30/19 21:00 11/19/19 20:59 Metformin HCl (Glucophage) 1,000 mg BID ORAL 08/30/19 09:00 09/21/19 08:59 08/30/19 09:04 Ondansetron HCl (Zofran) 4 mg Q6H PRN IVP Nausea & Vomiting 08/29/19 23:30 09/25/19 11:29 Pantoprazole (Protonix) 40 mg DAILY ORAL 08/30/19 09:00 09/21/19 08:59 08/30/19 09:04 Jacoby Arriaga MD Aug 30, 2019 10:20
--- NOTE | 2019-08-30 11:24 | NUR ---
DISCHARGE PLANNING DISCHARGE PLANNING ORDER FROM 08/27/19 NOTED CALLED AND SPOKE WITH [facility], ADRIAN. PER ADRIAN IT MIGHT BE DIFFICULT TO FIND SNF PLACEMENT FOR A COVID 19 POSITIVE PATIENT FAXED SNF PACKET TO: HCP NCM: ADRIAN T: [phone] OPT 1 F: [phone]
[2019-08-30 12:00] VITALS: BP 125/74
--- NOTE | 2019-08-30 14:17 | NUR ---
*-* INSURANCE *-* ALL AVAILABLE CLINICALS HAVE BEEN FAXED TO: [facility] OPAL: ADRIAN REF# [id number] P [phone] OPT. 01 F: [phone]
[2019-08-30 16:00] VITALS: BP 133/79
--- NOTE | 2019-08-30 19:30 | NUR ---
NURSE NOTES: Got report from Clifford RN. Pt in stable condition. Denies any pain. No s/s of distress or discomfort noted. Pt resting in bed comfortably. Bed in low andl locked position, call light within reach, bedside table within reach. Continue to monitor.
[2019-08-30 20:00] VITALS: BP 144/77
[2019-08-30] MEDS: Levemir Flexpen SUBQ SCH (21:00)
[2019-08-31] VITALS: BP 149/74
[2019-08-31 04:00] VITALS: BP 127/84
[2019-08-31] MEDS: NovoLOG Insulin Flexpen SUBQ SCH ×4 (06:30→22:45)
--- NOTE | 2019-08-31 07:15 | NUR ---
HAND-OFF: Report given to Jose LIRA.
[2019-08-31 08:00] VITALS: BP 130/86
--- NOTE | 2019-08-31 08:29 | NUR ---
CASE MANAGEMENT:REVIEW 08/31/19 SI: COVID 19 PNEUMONIA COVID 19 DETECTED 08/20/19 AND 08/28/19 97.7 100 18 127/84 97% ON RA IS: LEVEMIR SQ QHS METFORMIN PO BID SS INSULIN AC+HS :TELEMETRY STATUS DCP: DROPLET PRECAUTIONS PLAN: PATIENT IS FROM HOME BUT DR DOSS IS REQUESTING SNF PLACEMENT..DC WHEN SNF SECURED BY HEALTH PLAN AMBULATING 20FT X3 BUT NEEDS FREQUENT STOPS TO REST MAINTAIN DROPLET PRECAUTIONS
--- NOTE | 2019-08-31 09:26 | NUR ---
NURSE NOTES: pt was in in room sitting at that edge of the bed eating breakfast, Ox4 calm and cooperative, call light next to patient, bed alarm not on as per pt request, pt denies pain, pt afebrile, no s/s of sob or distress, pt on room air.
[2019-08-31] MEDS: metFORMIN 500mg tab ORAL SCH ×2 (10:08→17:31)
--- NOTE | 2019-08-31 10:55 | Pulmonology Progress Note ---
Assessment/Plan Assessment/Plan IMPRESSION: 1. Diabetes mellitus 2. Exacerbation of asthma. 3. Positive COVID-19 pneumonia 4. Hypertension. DISCUSSION: Continue diabetes control Second COVID 19 pending I will follow carefully. Seen by ID re + COVID 19 DC planning to SNF if second COVID 19 pcr negative Jacoby Arriaga M.D. Subjective Interval Events: None new Constitutional: Reports: no symptoms HEENT: Repors: no symptoms Respiratory: Reports: no symptoms Cardiovascular: Reports: no symptoms Allergies: Coded Allergies: No Known Allergies (Unverified , 08/20/19) Objective Last 24 Hour Vital Signs Date Time Temp Pulse Resp B/P (MAP) Pulse Ox O2 Delivery O2 Flow Rate FiO2 08/31/19 09:31 Room Air 08/31/19 08:00 98.1 98 18 130/86 (101) 98 08/31/19 04:00 97.7 100 18 127/84 (98) 97 08/31/19 04:00 78 08/31/19 00:00 98.4 70 18 149/74 (99) 96 08/31/19 00:00 83 08/30/19 21:00 Room Air 08/30/19 20:01 94 Room Air 21 08/30/19 20:00 98.9 80 18 144/77 (99) 95 08/30/19 16:00 98.2 83 18 133/79 (97) 96 08/30/19 12:00 97.5 87 18 125/74 (91) 96 Intake and Output 08/30/19 08/31/19 19:00 07:00 Intake Total 600 ml Balance 600 ml Intake Oral 600 ml # Voids 3 3 General Appearance: no acute distress HEENT: normocephalic Respiratory/Chest: chest wall non-tender, lungs clear Cardiovascular: normal peripheral pulses Microbiology Date/Time Source Procedure Growth Status 08/28/19 17:10 Nasopharynx Coronavirus COVID-19 PCR ([facility]) - Final Complete Current Medications Medications (Trade) Dose Ordered Sig/Estelle Route PRN Reason Start Time Stop Time Status Last Admin Dose Admin Dextrose (Dextrose 50%) 25 ml Q30M PRN IV Hypoglycemia 08/29/19 23:45 11/19/19 16:44 Dextrose (Dextrose 50%) 50 ml Q30M PRN IV Hypoglycemia 08/29/19 23:45 11/19/19 16:44 Guaifenesin/ Codeine Phosphate (Robitussin with codeine) 5 ml Q6H PRN ORAL For Cough 08/30/19 00:00 09/22/19 11:59 Insulin Aspart (NovoLOG) BEFORE MEALS AND HS SUBQ 08/30/19 06:30 11/19/19 20:59 Insulin Detemir (Levemir) 20 units BEDTIME SUBQ 08/30/19 21:00 11/19/19 20:59 Metformin HCl (Glucophage) 1,000 mg BID ORAL 08/30/19 09:00 09/21/19 08:59 08/31/19 10:08 Ondansetron HCl (Zofran) 4 mg Q6H PRN IVP Nausea & Vomiting 08/29/19 23:30 09/25/19 11:29 Jacoby Arriaga MD Aug 31, 2019 10:55
--- NOTE | 2019-08-31 11:40 | NUR ---
*-* INSURANCE *-* ALL AVAILABLE CLINICALS HAVE BEEN FAXED TO: [facility] OPAL: ADRIAN REF# [id number] P [phone] OPT. 01 F: [phone]
[2019-08-31 12:20] VITALS: BP 144/93
--- NOTE | 2019-08-31 13:37 | NUR ---
DISCHARGE PLANNING FAXED CLINICALS TO [facility] SINCE THEY ARE ACCEPTING COVID 19 PATIENTS SPOKE WITH SASKIA AT SNF. HE WILL REFER CASE TO THEIR CORPORATE OFFICE CALLED [facility] AT [facility] AND LEFT [facility] REQUESTING ASSISTANCE WITH PLACING THIS PATIENT AT [facility] SOON POSSIBLE *CALLED AND UPDATED PATIENT'S SON *PATIENT LIVES ALONE AND ONLY AMBULATING 20FT
[2019-08-31 16:30] VITALS: BP 140/88
--- NOTE | 2019-08-31 19:30 | NUR ---
NURSE NOTES: RECEIVED REPORT FROM PANKAJ MAN. PATIENT AWAKE IN BED, AAOX4, ABLE TO MAKE NEEDS KNOWN. NO COMPLAINTS OF PAIN OR DISCOMFORT AT THIS TIME. BREATHING EVEN AND UNLABORED ON 2L NC, NO S/SX OF DISTRESS. PATIENT ABLE TO REPOSITION SELF INDEPENDENTLY. BED LOCKED IN LOWEST POSITION WITH SIDERAILS UP X 2. PATIENT NOTED TO HAVE WALKER AT BEDSIDE. CALL LIGHT WITHIN REACH. WILL CONTINUE TO MONITOR FOR ANY CHANGES. Addendum: 08/31/19 at 2016 by Cornelia Carmona RN IV SITE ON LFA ASYMPTOMATIC, PATENT AND INTACT. DROPLET AND CONTACT ISOLATION IMPLEMENTED. FALL PRECAUTIONS IMPLEMENTED. Addendum: 09/01/19 at 0340 by Cornelia Carmona RN PATIENT ON ROOM AIR
[2019-08-31 20:00] VITALS: BP 140/75
--- NOTE | 2019-08-31 20:29 | NUR ---
HAND-OFF: Report given to Cornelia chappell, snf placement .
[2019-08-31] MEDS: Levemir Flexpen SUBQ SCH (22:44)
[2019-09-01] VITALS: BP 139/72
[2019-09-01 04:00] VITALS: BP 122/66
[2019-09-01] MEDS: NovoLOG Insulin Flexpen SUBQ SCH ×4 (06:44→20:27)
--- NOTE | 2019-09-01 07:24 | NUR ---
HAND-OFF: Report given to PANKAJ HAIRSTON. PLAN OF CARE ENDORSED.
[2019-09-01 08:19] VITALS: BP 113/70
[2019-09-01] MEDS: metFORMIN 500mg tab ORAL SCH ×2 (08:41→17:12)
--- NOTE | 2019-09-01 11:59 | Pulmonology Progress Note ---
Assessment/Plan Assessment/Plan IMPRESSION: 1. Diabetes mellitus 2. Exacerbation of asthma. 3. Positive COVID-19 pneumonia 4. Hypertension. DISCUSSION: Continue diabetes control Second COVID 19 pending I will follow carefully. Seen by ID re + COVID 19 DC planning to SNF if second COVID 19 pcr negative Jacoby Arriaga M.D. Subjective Interval Events: None new Constitutional: Reports: no symptoms HEENT: Repors: no symptoms Respiratory: Reports: no symptoms Cardiovascular: Reports: no symptoms Gastrointestinal/Abdominal: Reports: no symptoms Genitourinary: Reports: no symptoms Allergies: Coded Allergies: No Known Allergies (Unverified , 08/20/19) Objective Last 24 Hour Vital Signs Date Time Temp Pulse Resp B/P (MAP) Pulse Ox O2 Delivery O2 Flow Rate FiO2 09/01/19 08:19 97.7 87 18 113/70 (84) 95 09/01/19 08:00 98 09/01/19 04:00 74 09/01/19 04:00 97.7 87 18 122/66 (84) 95 09/01/19 00:00 98.6 83 19 139/72 (94) 96 09/01/19 00:00 95 08/31/19 21:00 Room Air 08/31/19 20:00 98.1 89 19 140/75 (96) 98 08/31/19 20:00 95 08/31/19 16:30 98.1 98 22 140/88 (105) 97 08/31/19 15:25 85 08/31/19 12:20 97.2 98 20 144/93 (110) 96 Intake and Output 08/31/19 09/01/19 19:00 07:00 Intake Total 800 ml Balance 800 ml Intake Oral 800 ml # Voids 3 3 General Appearance: no acute distress HEENT: normocephalic Respiratory/Chest: chest wall non-tender Cardiovascular: normal peripheral pulses Abdomen: normal bowel sounds Current Medications Medications (Trade) Dose Ordered Sig/Estelle Route PRN Reason Start Time Stop Time Status Last Admin Dose Admin Dextrose (Dextrose 50%) 25 ml Q30M PRN IV Hypoglycemia 08/29/19 23:45 11/19/19 16:44 Dextrose (Dextrose 50%) 50 ml Q30M PRN IV Hypoglycemia 08/29/19 23:45 11/19/19 16:44 Guaifenesin/ Codeine Phosphate (Robitussin with codeine) 5 ml Q6H PRN ORAL For Cough 08/30/19 00:00 09/22/19 11:59 Insulin Aspart (NovoLOG) BEFORE MEALS AND HS SUBQ 08/30/19 06:30 11/19/19 20:59 09/01/19 06:44 Insulin Detemir (Levemir) 20 units BEDTIME SUBQ 08/30/19 21:00 11/19/19 20:59 08/31/19 22:44 Metformin HCl (Glucophage) 1,000 mg BID ORAL 08/30/19 09:00 09/21/19 08:59 09/01/19 08:41 Ondansetron HCl (Zofran) 4 mg Q6H PRN IVP Nausea & Vomiting 08/29/19 23:30 09/25/19 11:29 Jacoby Arriaga MD Sep 01, 2019 11:59
[2019-09-01 12:36] VITALS: BP 138/83
[2019-09-01 16:00] VITALS: BP 149/80
--- NOTE | 2019-09-01 19:49 | NUR ---
NURSE NOTES: Pt received from PANKAJ Bassett alert and oriented x4 with no acute s/s of distress noted, primarily Bengali-speaking. IV site asymptomatic and patent on L fa 22g, saline lock. Bed in lowest position, call light and belongings within reach.
[2019-09-01 20:00] VITALS: BP 135/74
[2019-09-01] MEDS: Levemir Flexpen SUBQ SCH (20:26)
[2019-09-02] VITALS: BP 127/72
[2019-09-02 04:00] VITALS: BP 138/74
[2019-09-02] MEDS: NovoLOG Insulin Flexpen SUBQ SCH ×4 (05:40→20:55)
--- NOTE | 2019-09-02 07:27 | NUR ---
HAND-OFF: Report given to PANKAJ Bassett. Plan of care endorsed.
[2019-09-02 08:00] VITALS: BP 113/74
[2019-09-02] MEDS: metFORMIN 500mg tab ORAL SCH ×2 (08:41→17:23)
--- NOTE | 2019-09-02 11:08 | Pulmonology Progress Note ---
Assessment/Plan Assessment/Plan IMPRESSION: 1. Diabetes mellitus 2. Exacerbation of asthma. 3. Positive COVID-19 pneumonia 4. Hypertension. DISCUSSION: Continue diabetes control Second COVID 19 also positive I will follow carefully. Seen by ID re + COVID [address] Jacoby Arriaga M.D. Subjective Interval Events: None new; on RA Constitutional: Reports: no symptoms HEENT: Repors: no symptoms Respiratory: Reports: no symptoms Cardiovascular: Reports: no symptoms Gastrointestinal/Abdominal: Reports: no symptoms Allergies: Coded Allergies: No Known Allergies (Unverified , 08/20/19) Objective Last 24 Hour Vital Signs Date Time Temp Pulse Resp B/P (MAP) Pulse Ox O2 Delivery O2 Flow Rate FiO2 09/02/19 08:00 98.4 87 18 113/74 (87) 95 09/02/19 07:58 87 09/02/19 04:00 98.4 87 18 138/74 (95) 95 09/02/19 04:00 108 09/02/19 00:00 97.7 89 18 127/72 (90) 95 09/02/19 00:00 76 09/01/19 21:00 Room Air 09/01/19 20:00 92 09/01/19 20:00 97.8 84 18 135/74 (94) 96 09/01/19 16:18 90 09/01/19 16:00 97.7 87 18 149/80 (103) 95 09/01/19 12:36 97.7 108 18 138/83 (101) 95 09/01/19 11:43 98 Intake and Output 09/01/19 09/02/19 19:00 07:00 Intake Total 720 ml 250 ml Balance 720 ml 250 ml Intake Oral 720 ml 250 ml # Voids 3 General Appearance: no acute distress HEENT: normocephalic Respiratory/Chest: chest wall non-tender Cardiovascular: normal peripheral pulses Abdomen: normal bowel sounds Current Medications Medications (Trade) Dose Ordered Sig/Estelle Route PRN Reason Start Time Stop Time Status Last Admin Dose Admin Dextrose (Dextrose 50%) 25 ml Q30M PRN IV Hypoglycemia 08/29/19 23:45 11/19/19 16:44 Dextrose (Dextrose 50%) 50 ml Q30M PRN IV Hypoglycemia 08/29/19 23:45 11/19/19 16:44 Guaifenesin/ Codeine Phosphate (Robitussin with codeine) 5 ml Q6H PRN ORAL For Cough 08/30/19 00:00 09/22/19 11:59 Insulin Aspart (NovoLOG) BEFORE MEALS AND HS SUBQ 08/30/19 06:30 11/19/19 20:59 09/01/19 20:27 Insulin Detemir (Levemir) 20 units BEDTIME SUBQ 08/30/19 21:00 11/19/19 20:59 09/01/19 20:26 Metformin HCl (Glucophage) 1,000 mg BID ORAL 08/30/19 09:00 09/21/19 08:59 09/02/19 08:41 Ondansetron HCl (Zofran) 4 mg Q6H PRN IVP Nausea & Vomiting 08/29/19 23:30 09/25/19 11:29 Jacoby Arriaga MD Sep 02, 2019 11:08
--- NOTE | 2019-09-02 11:59 | NUR ---
NURSE NOTES: relayed to Dr Arriaga re pt c/o "vertigo" per md call him again if still complains of it otherwise just monitor.
[2019-09-02 12:00] VITALS: BP 120/74
[2019-09-02 16:00] VITALS: BP 118/74
--- NOTE | 2019-09-02 19:05 | NUR ---
NURSE NOTES: Report received from PANKAJ briones. Patient awake, alert, and responsive. AOx4. Able to verbalize needs. IV checked and flushed; no erythema, bleeding, or infiltration. No skin issues. Resting on semi-malin's position; no signs of difficulty breathing or acute distress. On room air, saturating at 98%. Bed in lowest position, brakes engaged. Bed rails raised x2. Belongings placed within reach. Call light placed within reach. Will continue to monitor.
[2019-09-02 20:00] VITALS: BP_SYST 126; BP_SYST 6; BP_DIAS 90
[2019-09-02] MEDS: Levemir Flexpen SUBQ SCH (20:54)
[2019-09-03] VITALS: BP 132/81
[2019-09-03 04:00] VITALS: BP 124/54
[2019-09-03] MEDS: NovoLOG Insulin Flexpen SUBQ SCH ×4 (05:45→22:00)
--- NOTE | 2019-09-03 07:15 | NUR ---
HAND-OFF: Report given to PANKAJ Tucker. Plan of care endorsed. Patient stable.
[2019-09-03 08:00] VITALS: BP 125/55
--- NOTE | 2019-09-03 08:34 | NUR ---
NURSE NOTES: Patient stable AOx4 SR with no s/sx of distress or pain. RR even and unlabored on RA. Complaining that she is hungry and does not like her breakfast. Kitchen called for new meal. Per patient she does not want to be discharged to intermediate and would like to be discharged home. Will relay message to continuous pillowcase cutter and MD. Side rails upx2 and padded, call light within reach, bed low and locked. Will continue to monitor.
[2019-09-03] MEDS: metFORMIN 500mg tab ORAL SCH ×2 (09:28→18:39)
--- NOTE | 2019-09-03 10:01 | NUR ---
RD ASSESSMENT & RECOMMENDATIONS SEE CARE ACTIVITY FOR COMPLETE ASSESSMENT DAILY ESTIMATED NEEDS: Needs based on DM/ 55kg abw 25-30 kcals/kg 6163-4059 total kcals 1-1.3 g protein/kg 55-71 g total protein 25-30 mL/kg 2152-1655 total fluid mLs NUTRITION DIAGNOSIS: Altered nutrition related lab values R/T diabetes as evidenced by elev POC glu (163-191) on IM and oral hypoglycemics. CURRENT DIET:CCHO MED PO DIET RECOMMENDATIONS: CCHO LOW / texture as tolerated ADDITIONAL RECOMMENDATIONS: * Standing wt as able for accurate CBW * A1C for eval of glycemic control * Monitor for hypoglycemia while PO intake variable/poor * Glucerna Q daily w/ poor/variable PO intake * Add high pro/ 1 carb snack in b/ meals * Updated labs as able
--- NOTE | 2019-09-03 10:08 | NUR ---
CASE MANAGEMENT:REVIEW 09/03/19 SI: COVID 19 PNEUMONIA. COVID 19 DETECTED 08/20/19 AND 08/28/19 96.6 79 18 124/54 97% ON RA IS: LEVEMIR SQ QHS METFORMIN PO BID SS INSULIN AC+HS :TELEMETRY STATUS DCP: DROPLET PRECAUTIONS PLAN: MAINTAIN DROPLET PRECAUTION
--- NOTE | 2019-09-03 10:30 | Pulmonology Progress Note ---
Assessment/Plan Assessment/Plan IMPRESSION: 1. Diabetes mellitus 2. Exacerbation of asthma. 3. Positive COVID-19 pneumonia 4. Hypertension. DISCUSSION: Continue diabetes control Second COVID 19 also positive I will follow carefully. Seen by ID re + COVID [address] Jacoby Arriaga M.D. Subjective Interval Events: None new Constitutional: Reports: no symptoms HEENT: Repors: no symptoms Respiratory: Reports: no symptoms Cardiovascular: Reports: no symptoms Allergies: Coded Allergies: No Known Allergies (Unverified , 08/20/19) Objective Last 24 Hour Vital Signs Date Time Temp Pulse Resp B/P (MAP) Pulse Ox O2 Delivery O2 Flow Rate FiO2 09/03/19 09:02 Room Air 09/03/19 04:00 96.6 79 18 124/54 (77) 97 09/03/19 04:00 86 09/03/19 00:00 91 09/03/19 00:00 97.5 88 18 132/81 (98) 97 09/02/19 21:00 Room Air 09/02/19 20:00 92 09/02/19 20:00 99.1 91 18 126/90 (102) 98 09/02/19 16:00 98.4 87 18 118/74 (89) 95 09/02/19 15:32 93 09/02/19 12:00 98.4 87 18 120/74 (89) 95 09/02/19 11:40 91 Intake and Output 09/02/19 09/03/19 19:00 07:00 Intake Total 250 ml Balance 250 ml Intake Oral 250 ml # Voids 3 2 # Bowel Movements 2 General Appearance: no acute distress HEENT: normocephalic Respiratory/Chest: chest wall non-tender Cardiovascular: normal peripheral pulses Current Medications Medications (Trade) Dose Ordered Sig/Estelle Route PRN Reason Start Time Stop Time Status Last Admin Dose Admin Dextrose (Dextrose 50%) 25 ml Q30M PRN IV Hypoglycemia 08/29/19 23:45 11/19/19 16:44 Dextrose (Dextrose 50%) 50 ml Q30M PRN IV Hypoglycemia 08/29/19 23:45 11/19/19 16:44 Guaifenesin/ Codeine Phosphate (Robitussin with codeine) 5 ml Q6H PRN ORAL For Cough 08/30/19 00:00 09/22/19 11:59 Insulin Aspart (NovoLOG) BEFORE MEALS AND HS SUBQ 08/30/19 06:30 11/19/19 20:59 09/03/19 05:45 Insulin Detemir (Levemir) 20 units BEDTIME SUBQ 08/30/19 21:00 11/19/19 20:59 09/02/19 20:54 Metformin HCl (Glucophage) 1,000 mg BID ORAL 08/30/19 09:00 09/21/19 08:59 09/03/19 09:28 Ondansetron HCl (Zofran) 4 mg Q6H PRN IVP Nausea & Vomiting 08/29/19 23:30 09/25/19 11:29 09/02/19 11:48 Jacoby Arriaga MD Sep 03, 2019 10:30
[2019-09-03 12:00] VITALS: BP 128/75
--- NOTE | 2019-09-03 13:57 | NUR ---
*-* INSURANCE *-* ALL AVAILABLE CLINICALS HAVE BEEN FAXED TO: [facility] OPAL: ADRIAN REF# [id number] P [phone] OPT. 01 F: [phone]
[2019-09-03 16:00] VITALS: BP 125/60
--- NOTE | 2019-09-03 19:59 | NUR ---
HAND-OFF: Report given to Jaqueline LIRA. Patient stable. Plan of care endorsed.
[2019-09-03 20:00] VITALS: BP 130/65
--- NOTE | 2019-09-03 20:14 | NUR ---
NURSE NOTES: Called Dr. Arriaga because patient is complaining about vertigo and would like to have her medication for it. Left a message, awaiting response.
--- NOTE | 2019-09-03 20:43 | NUR ---
NURSE NOTES: Received patient report from PANKAJ Najera. Patient stable AOx4 SR with no s/sx of distress or pain. RR even and unlabored on RA. Side rails upx2 and padded, call light within reach, bed low and locked. Will continue to monitor.
[2019-09-03] MEDS: Levemir Flexpen SUBQ SCH (21:57)
[2019-09-04] VITALS: BP 130/71
[2019-09-04 04:00] VITALS: BP 150/75
[2019-09-04] MEDS: NovoLOG Insulin Flexpen SUBQ SCH ×4 (06:18→20:37)
--- NOTE | 2019-09-04 07:47 | NUR ---
HAND-OFF: Report given to PANKAJ Najera. Patient shows no signs of distress or pain. Plan of care endorsed.
--- NOTE | 2019-09-04 07:50 | NUR ---
NURSE NOTES: Received patient in bed awake. No SOB or acute distress. HOB elevated. Bed locked in lowest position. Call light within reach will continue plan of care.
[2019-09-04 08:00] VITALS: BP 116/64
[2019-09-04] MEDS: metFORMIN 500mg tab ORAL SCH ×2 (08:22→17:04)
--- NOTE | 2019-09-04 10:11 | NUR ---
CASE MANAGEMENT:REVIEW 09/04/19 SI: COVID 19 PNEUMONIA. COVID 19 DETECTED 08/20/19 AND 08/28/19 98.0 84 18 116/64 95% ON RA IS: LEVEMIR SQ QHS METFORMIN PO BID SS INSULIN AC+HS :TELEMETRY STATUS DCP: DROPLET PRECAUTIONS PLAN: MAINTAIN DROPLET PRECAUTION PATIENT NEEDS SNF PLACEMENT...SPOKE WITH ADRIAN ON 08/30 AND 09/02 AND INFORMED HER THAT [facility] IS ACCEPTING COVID 19 PATIENTS. SPOKE WITH SASKIA AT [facility] WHO STATED THEY ARE WILLING TO ACCEPT THIS PATIENT IF THEY CAN GET AUTHORIZATION FROM [facility]. DR DOSS UPDATED
--- NOTE | 2019-09-04 10:20 | NUR ---
DISCHARGE PLANNING PATIENT HAS BEEN REFERRED TO AND ACCEPTED AT [place] [address] [address] [id number] WAITING FOR [facility] TO APPROVE TRANSFER
--- NOTE | 2019-09-04 11:27 | Pulmonology Progress Note ---
Assessment/Plan Assessment/Plan IMPRESSION: 1. Diabetes mellitus 2. Exacerbation of asthma. 3. Positive COVID-19 pneumonia 4. Hypertension. DISCUSSION: Continue diabetes control Second COVID 19 also positive I will follow carefully. Seen by ID re + COVID [address] Jacoby Arriaga M.D. Subjective Interval Events: None new; awaiting placement Constitutional: Reports: no symptoms HEENT: Repors: no symptoms Respiratory: Reports: no symptoms Cardiovascular: Reports: no symptoms Gastrointestinal/Abdominal: Reports: no symptoms Allergies: Coded Allergies: No Known Allergies (Unverified , 08/20/19) Objective Last 24 Hour Vital Signs Date Time Temp Pulse Resp B/P (MAP) Pulse Ox O2 Delivery O2 Flow Rate FiO2 09/04/19 08:00 98.0 84 18 116/64 (81) 95 09/04/19 08:00 92 09/04/19 04:00 98.6 89 22 150/75 (100) 96 09/04/19 04:00 87 09/04/19 00:00 98.9 91 18 130/71 (90) 95 09/03/19 23:29 102 09/03/19 21:00 Room Air 09/03/19 20:00 98.3 85 20 130/65 (86) 95 09/03/19 19:58 95 Room Air 21 09/03/19 16:00 91 09/03/19 16:00 97.3 90 20 125/60 (81) 93 09/03/19 12:00 99.1 91 20 128/75 (92) 94 09/03/19 12:00 99 Intake and Output 09/03/19 09/04/19 19:00 07:00 Intake Total 400 ml 250 ml Balance 400 ml 250 ml Intake Oral 400 ml 250 ml # Voids 3 1 # Bowel Movements 1 General Appearance: no acute distress HEENT: normocephalic Respiratory/Chest: chest wall non-tender, lungs clear Cardiovascular: normal peripheral pulses, normal rate Abdomen: normal bowel sounds Current Medications Medications (Trade) Dose Ordered Sig/Estelle Route PRN Reason Start Time Stop Time Status Last Admin Dose Admin Dextrose (Dextrose 50%) 25 ml Q30M PRN IV Hypoglycemia 08/29/19 23:45 11/19/19 16:44 Dextrose (Dextrose 50%) 50 ml Q30M PRN IV Hypoglycemia 08/29/19 23:45 11/19/19 16:44 Guaifenesin/ Codeine Phosphate (Robitussin with codeine) 5 ml Q6H PRN ORAL For Cough 08/30/19 00:00 09/22/19 11:59 Insulin Aspart (NovoLOG) BEFORE MEALS AND HS SUBQ 08/30/19 06:30 11/19/19 20:59 09/04/19 06:18 Insulin Detemir (Levemir) 20 units BEDTIME SUBQ 08/30/19 21:00 11/19/19 20:59 09/03/19 21:57 Metformin HCl (Glucophage) 1,000 mg BID ORAL 08/30/19 09:00 09/21/19 08:59 09/04/19 08:22 Ondansetron HCl (Zofran) 4 mg Q6H PRN IVP Nausea & Vomiting 08/29/19 23:30 09/25/19 11:29 09/02/19 11:48 Jacoby Arriaga MD Sep 04, 2019 11:27
[2019-09-04 12:00] VITALS: BP 132/89
--- NOTE | 2019-09-04 12:05 | NUR ---
*-* INSURANCE *-* ALL AVAILABLE CLINICALS HAVE BEEN FAXED TO: [facility] OPAL: ADRIAN REF# [id number] P [phone] OPT. 01 F: [phone]
[2019-09-04 16:00] VITALS: BP 138/77
--- NOTE | 2019-09-04 16:45 | NUR ---
NURSE NOTES: Patient requesting medication for vertigo and indigestion. Message left for Dr Arriaga, awaiting response.
--- NOTE | 2019-09-04 19:05 | NUR ---
NURSE NOTES: Report received from PANKAJ Ren. Patient is AOx4. Patient is alert, awake, and talkative. Verbally responsive and able to communicate needs. Received supine on bed. No signs of acute distress and shortness of breath. Skin intact. No IV access. Purewick functioning and draining. On room air, saturating at 95%. Contact and droplet precautions enforced for COVID-19. Denies pain or discomfort. Personal belongings placed within reach. Call light placed within reach. Will continue to monitor.
--- NOTE | 2019-09-04 19:46 | NUR ---
HAND-OFF: Report given to Wilfred.
[2019-09-04 20:00] VITALS: BP 111/76
[2019-09-04] MEDS: Levemir Flexpen SUBQ SCH (20:20)
[2019-09-04] MEDS: Meclizine 25mg tab ORAL PRN (21:55)
[2019-09-05] VITALS: BP 126/69
[2019-09-05 04:00] VITALS: BP 142/89
--- NOTE | 2019-09-05 04:35 | NUR ---
NURSE NOTES: Patient asleep in bed. VS within normal limits. Bed rails raised x2. Call light placed within reach. Will continue to monitor.
[2019-09-05] MEDS: NovoLOG Insulin Flexpen SUBQ SCH ×2 (05:52→13:15)
--- NOTE | 2019-09-05 07:00 | NUR ---
OBTAINED REPORT FROM PANKAJ NIÑO. PT IN NO APPARENT DISTRESS.
--- NOTE | 2019-09-05 07:29 | NUR ---
HAND-OFF: Report given to PANKAJ Weber. Patient stable. Plan of care endorsed.
[2019-09-05 08:00] VITALS: BP 114/67
[2019-09-05] MEDS: metFORMIN 500mg tab ORAL SCH (09:49)
[2019-09-05] MEDS: Meclizine 25mg tab ORAL PRN (09:49)
--- NOTE | 2019-09-05 10:05 | NUR ---
CASE MANAGEMENT:REVIEW 09/04/19 SI: COVID 19 PNEUMONIA. COVID 19 DETECTED 08/20/19 AND 08/28/19 98.0 84 18 116/64 95% ON RA IS: LEVEMIR SQ QHS METFORMIN PO BID SS INSULIN AC+HS :TELEMETRY STATUS DCP: DROPLET PRECAUTIONS PLAN: MAINTAIN DROPLET PRECAUTION REFERRED TO [facility] WAITING FOR HCP TO PROVIDE SNF WITH [facility]
--- NOTE | 2019-09-05 11:09 | NUR ---
*-* INSURANCE *-* UPDATED CLINICALS HAVE BEEN FAXED TO: [facility] OPAL: ADRIAN REF# [id number] P [phone] OPT. 01 F: [phone]
--- NOTE | 2019-09-05 11:28 | Pulmonology Progress Note ---
Assessment/Plan Assessment/Plan IMPRESSION: 1. Diabetes mellitus 2. Exacerbation of asthma. 3. Positive COVID-19 pneumonia 4. Hypertension. DISCUSSION: Continue diabetes control Second COVID 19 also positive I will follow carefully. Seen by ID re + COVID [address] Jacoby Arriaga M.D. Subjective Interval Events: No new reports Constitutional: Reports: no symptoms HEENT: Repors: no symptoms Respiratory: Reports: no symptoms Cardiovascular: Reports: no symptoms Allergies: Coded Allergies: No Known Allergies (Unverified , 08/20/19) Objective Last 24 Hour Vital Signs Date Time Temp Pulse Resp B/P (MAP) Pulse Ox O2 Delivery O2 Flow Rate FiO2 09/05/19 04:00 97.7 94 19 142/89 (106) 96 09/05/19 04:00 88 09/05/19 00:00 97.9 89 19 126/69 (88) 97 09/05/19 00:00 84 09/04/19 21:00 Room Air 09/04/19 20:40 97 Room Air 21 09/04/19 20:00 99 09/04/19 20:00 98.2 96 19 111/76 (88) 95 09/04/19 16:00 99.0 90 18 138/77 (97) 97 09/04/19 16:00 110 09/04/19 14:00 93 09/04/19 12:00 98.0 95 18 132/89 (103) 98 Intake and Output 09/04/19 09/05/19 19:00 07:00 Intake Total 480 ml 240 ml Output Total 500 ml Balance 480 ml -260 ml Intake Oral 480 ml 240 ml Output Urine Total 500 ml # Voids 2 2 # Bowel Movements 1 General Appearance: no acute distress HEENT: normocephalic Respiratory/Chest: chest wall non-tender Cardiovascular: normal peripheral pulses Abdomen: normal bowel sounds Current Medications Medications (Trade) Dose Ordered Sig/Estelle Route PRN Reason Start Time Stop Time Status Last Admin Dose Admin Dextrose (Dextrose 50%) 25 ml Q30M PRN IV Hypoglycemia 08/29/19 23:45 11/19/19 16:44 Dextrose (Dextrose 50%) 50 ml Q30M PRN IV Hypoglycemia 08/29/19 23:45 11/19/19 16:44 Guaifenesin/ Codeine Phosphate (Robitussin with codeine) 5 ml Q6H PRN ORAL For Cough 08/30/19 00:00 09/22/19 11:59 Insulin Aspart (NovoLOG) BEFORE MEALS AND HS SUBQ 08/30/19 06:30 11/19/19 20:59 09/04/19 17:18 Insulin Detemir (Levemir) 20 units BEDTIME SUBQ 08/30/19 21:00 11/19/19 20:59 09/04/19 20:20 Meclizine HCl (Antivert) 25 mg TIDPRN PRN ORAL for dizziness 09/04/19 19:15 10/04/19 19:14 09/05/19 09:49 Metformin HCl (Glucophage) 1,000 mg BID ORAL 08/30/19 09:00 09/21/19 08:59 09/05/19 09:49 Ondansetron HCl (Zofran) 4 mg Q6H PRN IVP Nausea & Vomiting 08/29/19 23:30 09/25/19 11:29 09/02/19 11:48 Jacoby Arriaga MD Sep 05, 2019 11:28
[2019-09-05 12:00] VITALS: BP 140/90
--- NOTE | 2019-09-05 13:03 | NUR ---
DISCHARGE PLANNING RECEIVED CALL FROM SASKIA AT [facility] LETTER OF AGREEMENT HAS BEEN RECEIVED FROM [facility] THEY ARE ACCEPTING PATIENT TO ROOM [address] SASKIA REQUESTED PATIENT BE SENT AT 1430 WILL NEED TO CALL [facility] TO CONFIRM TRANSPORTATION
--- NOTE | 2019-09-05 13:50 | NUR ---
DISCHARGE PLANNED PATIENT IS DISCHARGING TO: [facility] ROOM [address] T: [phone] FOR NURSE TO NURSE REPORT [facility] ARRANGED AMBULANCE TRANSPORT WITH YESSICA FOR A 3:15 [employer] MARKER CHEMICAL PATHOLOGIST CALLED PATIENT'S SON, LUIS, AND PROVIDED HIM WITH NAME, ADDRESS AND PHONE NUMBER OF FACILITY. SON IS IN AGREEMENT WITH 14 DAY STAY AT [facility] CALLED AND INFORMED MALEX ([id number]) OF THE ABOVE SO SHE CAN REPORT THE HEALTH DEPARTMENT
[2019-09-05 15:10] VITALS: BP 131/70
--- NOTE | 2019-09-05 15:17 | NUR ---
GAVE FULL REPORT TO PALAK LIRA, MADE AWARE PT POSITIVE FOR COVID (CONTINUE ISOLATION). EDUCATED ON DISCHARGE INSTRUCTIONS TO SNF. VERBALIZED UNDERSTANDING.
--- NOTE | 2019-09-05 15:48 | NUR ---
NO IV IN PLACE, ID BAND OFF PT. TELE MONITOR OFF PT. PT DISCHARGED TO SNF WITH ALL BELONGINGS (BELONGING FORM SIGNED BY PT). HOME MED GIVEN TO PT AT DISCHARGE. PRESCRIPTION PROVIDED TO PT. PT MADE AWARE TO F/U WITH PRIMARY MD IN 1-2 WEEKS. EDUCATED TO GO TO ED IF SYMPTOMS WORSEN. VERBALIZED UNDERSTANDING. PT SON (PRIMARY CONTACT) AWARE PT IS GOING TO SNF PER JOINERS SUPERVISOR.
--- NOTE | 2019-09-06 08:53 | NUR ---
CASE MANAGEMENT NOTE RECEIVED A CALL FROM HCP (KURT) WANTED TO KNOW IF PATIENT WAS STILL IN HOUSE INFORMED KURT PATIENT DC TO [facility]
--- NOTE | 2019-09-06 11:42 | NUR ---
*-* INSURANCE *-* NO DISCHARGE SUMMARY I THE SYSTEM UNABLE TO FAX
--- NOTE | 2019-09-06 17:35 | Discharge Summary ---
Discharge Summary Discharge Summary _ DATE OF ADMISSION: 08/20/2019 DATE OF DISCHARGE: 09/05/2019 DISCHARGED BY: Dr. Arriaga REASON FOR ADMISSION: 74 years old female with past medical history of hypertension, diabetes mellitus , asthma, presented for evaluation due to cough and shortness of breath. Patient also had diarrhea with abdominal pain and vomiting. Patient reported being fatigued. Pulse oximetry was 92% on room air. Laboratory work-up revealed no leukocytosis, lactic acid 2.4. Urinalysis was negative. Chest x-ray revealed right basilar scaring, but no definite pathology was noted. Glucose 377. Patient was tested for COVID-19 in emergency department and admitted to the hospital to isolation room for further management. CONSULTANTS: ID specialist Dr. Rogers HOSPITAL COURSE: Patient admitted to telemetry floor to isolation room. Patient started on empiric antibiotic and IV fluids. Patient started on IV steroids with gradual tapering. Influenza test was negative. COVID 19 was detected on 2 different occasions. Blood cultures were negative. Patient was kept on contact and droplet isolation. Patient received Plaquenil and azithromycin. Patient remained on telemetry with close monitoring of QT interval. Supplemental oxygen provided and titrated to keep pulse oximetry above 92% ; nebulizing treatments bronchodilator provided. Repeated lactic acid 1.5. Blood sugar was managed with metformin, long-acting Levemir and sliding scale of insulin as needed. Blood sugar stabilized. Antitussive provided as needed. GI prophylaxis provided. Blood pressure was closely monitored, remained stable. Patient clinically stabilized. Pulse oximetry stable on room air. Patient was stable for discharge to senior living facility for continuation of care. FINAL DIAGNOSES: COVID-19 pneumonia Asthma exacerbation Diabetes mellitus with hyperglycemia Hypertension DISCHARGE MEDICATIONS: See Medication Reconciliation list. DISCHARGE INSTRUCTIONS: Patient was discharged to the senior living facility. Follow up with medical doctor at the facility. I have been assigned to dictate discharge summary for this account. I was not involved in the patient's management. Lisa Ackerman NP Sep 06, 2019 17:35
--- NOTE | 2019-09-07 10:29 | NUR ---
*-* INSURANCE *-* DISCHARGE SUMMARYH BEEN FAXED TO: [facility] OPAL: ADRIAN REF# [id number] P [phone] OPT. 01 F: [phone]
== END 2019-09-05 15:45 | DRG 177 ==
LOC: EDBD 18:51 → EMR 19:15 → 2W 21:30 → EDBEDREQ 08-21 13:42 → UNDOADMIN 08-21 14:06 → 2W 08-21 14:06 → 2E 08-29 23:04
DX: U07.1 COVID-19 (principal); J12.89 Other viral pneumonia; J45.901 Unspecified asthma with (acute) exacerbation; E11.65 Type 2 diabetes mellitus with hyperglycemia; I10 Essential (primary) hypertension
CPT/HCPCS: 36415; 71045; 80048; 80053; 81003; 82550; 82553; 82962; 83605; 83880; 84484; 85025; 85610; 85730; 86710; 87040; 87635; 93005; 96361; 96365; 99284; J1815; J2405; J7030; S5561